=== PATIENT | male | born 1935 | race Caucasian/White ===

== ENCOUNTER 2017-09-28 12:20 | Inpatient (IN) | payer OTHER, MEDICAID ==
[2017-09-28] MEDS ORDERED: DILTIAZEM 25 MG INJ (12:44)
[2017-09-28] MEDS: SOD CHLORIDE 0.9% IV (12:52)
[2017-09-28] MEDS: DILTIAZEM 25 MG INJ IV ×3 (12:53→15:51)
[2017-09-28 13:32] LABS: ABNORMAL IP MESSAGE 1; HEMATOCRIT 47.1 % (42.0-52.0); HEMOGLOBIN 15.7 g/dl (14.0-18.0); MEAN CORPUSCULAR HEMOGLOBIN 26.8 pg (29.0-33.0); MEAN CORPUSCULAR HGB CONC 33.3 g/dl (32.0-37.0); MEAN CORPUSCULAR VOLUME 80.4 fl (82.0-101.0); MEAN PLATELET VOLUME 12.1 fl (7.4-10.4); NUCLEATED RED BLOOD CELLS% 0.4 /100WBC (0.0-0.0); PLATELET COUNT 190 10^3/UL (140-415); POSITIVE DIFF @See below; RED BLOOD COUNT 5.86 10^6/ul (4.70-6.10); RED CELL DISTRIBUTION WIDTH 16.6 % (11.5-14.5)
[2017-09-28 13:32] LABS: WHITE BLOOD COUNT 16.9 10^3/ul (4.8-10.8)
[2017-09-28 13:41] LABS: ADD MAN DIFF? YES
[2017-09-28 13:52] LABS: INR 1.97; PROTIME 22.9 Sec (11.9-14.9); PT RATIO 1.8
[2017-09-28 13:53] LABS: PARTIAL THROMBOPLASTIN TIME 28.9 Sec (25.0-35.0)
[2017-09-28 13:57] LABS: ALANINE AMINOTRANSFERASE 84 IU/L (13-69); ALBUMIN 4.1 g/dl (3.3-4.9); ALBUMIN/GLOBULIN RATIO 1.05; ALKALINE PHOSPHATASE 149 IU/L (42-121); ANION GAP 27 (8-16); ASPARTATE AMINO TRANSFERASE 146 IU/L (15-46); BILIRUBIN,INDIRECT 0.9 mg/dl (0-1.1); BILIRUBIN,TOTAL 1.4 mg/dl (0.2-1.3); BLOOD UREA NITROGEN 82 mg/dl (7-20); CALCIUM 9.4 mg/dl (8.4-10.2); CARBON DIOXIDE 16 mmol/L (21-31); CHLORIDE 94 mmol/L (97-110); CREATININE 1.53 mg/dl (0.61-1.24); SODIUM 131 mmol/L (135-144)
[2017-09-28 14:00] LABS: LACTIC ACID 8.3 mmol/L (0.5-2.0)
[2017-09-28] MEDS: PIPER-TAZO 3.375 GM IV (PMX) 100 ML IVPB ×2 (14:09→21:49)
[2017-09-28 14:21] LABS: GLUCOSE 573 mg/dl (70-220)
[2017-09-28 14:22] LABS: POTASSIUM 6.1 mmol/L (3.5-5.1)
[2017-09-28] MEDS: SOD CHLORIDE 0.9% 100 ML (14:35)
[2017-09-28 14:42] LABS: TROPONIN-I 0.178 ng/ml (0.00-0.12)
[2017-09-28 14:48] LABS: AADO2 Arterial 116.1 mmHg (7.0-24.0); Allen Test ACCEPTAB; Arterial Base Excess -6.4 mmol/L (-3.0-3); Arterial Blood Gas Oxygen Sat 89.5 mmHG (95.0-100.0); Arterial COHb 0.6 % (0.0-3.0); Arterial Fraction of Oxyhgb 88.7 % (93.0-99.0); Arterial HCO3 17.8 mmol/L (22.0-26.0); Arterial MetHb 0.3 % (0.0-1.5); Arterial Total Hemglobin 15.1 g/dl (12.0-18.0); MODE NASAL CANNULA; Site Right Radial
[2017-09-28] MEDS: VANCOMYCIN 1 GM (PMX) 250 ML IVPB (14:52)
[2017-09-28 15:16] LABS: URINE BLOOD (Dip) POC 3+ (NEGATIVE); URINE KETONES (Dip) POC Negative (NEGATIVE); URINE LEUKOCYTE EST (Dip) POC Negative (NEGATIVE); URINE NITRITE (Dip) POC Negative (NEGATIVE); URINE TOTAL PROTEIN POC 2+ (NEGATIVE)
[2017-09-28 15:16] LABS: URINE PH (Dip) POC 5.5 (5.0-8.5)
[2017-09-28 15:39] LABS: ADD UMIC YES; UR ASCORBIC ACID NEGATIVE (NEGATIVE); UR BILIRUBIN (Dip) NEGATIVE (NEGATIVE); UR BLOOD (Dip) 3+ mg/dL (NEGATIVE); UR CLARITY SLIGHTLY CLOUDY (CLEAR); UR COLOR YELLOW (YELLOW); UR GLUCOSE (Dip) 3+ mg/dL (NEGATIVE); UR KETONES (Dip) NEGATIVE (NEGATIVE); UR LEUKOCYTE ESTERASE (Dip) NEGATIVE Leu/ul (NEGATIVE); UR NITRITE (Dip) NEGATIVE (NEGATIVE); UR RBC 0 /HPF (0-5); UR SPECIFIC GRAVITY (Dip) 1.016 (1.003-1.030); UR TOTAL PROTEIN (Dip) 1+ mg/dl (NEGATIVE); UR UROBILINOGEN (Dip) NEGATIVE (NEGATIVE); UR WBC 3 /HPF (0-5)
[2017-09-28] MEDS: ASPIRIN 81 MG TAB PO (15:44)
[2017-09-28] MEDS: LIDOCAINE 1% (MPF) 5 ML VIAL SC (15:45)
[2017-09-28] MEDS: ACCU-CHEK XX ×9 (15:51→23:59)
[2017-09-28 16:06] LABS: LACTIC ACID 5.3 mmol/L (0.5-2.0)
[2017-09-28] MEDS ORDERED: NA POLYST SULFON 15 GM/60 ML BTL PO (16:30)
[2017-09-28] MEDS: INSULIN HUMAN REGULAR 100 UNIT in SOD CHLORIDE 0.9% 99 ML IV ×2 (16:42→17:26)
[2017-09-28] MEDS ORDERED: Treatment of Hypoglycemia: XX (17:00)
[2017-09-28] MEDS ORDERED: DEXTROSE 50% 50 ML SYRINGE IV ×2 (17:00)
[2017-09-28] MEDS ORDERED: ONDANSETRON 4 MG INJ IV (17:00)
[2017-09-28] MEDS ORDERED: VANCOMYCIN IV PER PHARMACY XX (17:00)
[2017-09-28] MEDS ORDERED: NACL 0.9% 3 ML SYG IV (17:00)
[2017-09-28] MEDS: Discontinue all previous diabetes medication and insulin orders. XX (17:25)
[2017-09-28] MEDS: SOD CHLORIDE 0.9% 1,000 ML IV (17:34)
[2017-09-28 17:49] LABS: B-TYPE NATRIURETIC PEPTIDE 31000 PG/ML (0-450)
[2017-09-28] MEDS ORDERED: DILTIAZEM-D5W 125MG/125ML DRIP 125 ML IV (18:00)
[2017-09-28 18:05] LABS: FREE T4 (FREE THYROXINE) 1.54 ng/dl (0.85-1.93)
[2017-09-28] MEDS: DILTIAZEM-D5W 125MG/125ML DRIP 125 ML IV (18:41)
[2017-09-28] MEDS ORDERED: LEVALBUTEROL (NEB) 0.31 MG/3 ML AMP HHN (19:00)
[2017-09-28 19:14] LABS: CREATINE KINASE 1246 IU/L (23-200)
[2017-09-28 19:15] LABS: ANION GAP 23 (8-16); BLOOD UREA NITROGEN 73 mg/dl (7-20); CALCIUM 9.1 mg/dl (8.4-10.2); CARBON DIOXIDE 21 mmol/L (21-31); CHLORIDE 99 mmol/L (97-110); CREATININE 1.35 mg/dl (0.61-1.24); GLUCOSE 281 mg/dl (70-220); MAGNESIUM 2.1 mg/dl (1.7-2.5); SODIUM 138 mmol/L (135-144)
[2017-09-28 19:19] LABS: LACTIC ACID 6.2 mmol/L (0.5-2.0)
[2017-09-28] MEDS: FUROSEMIDE 40 MG INJ IV (19:21)
[2017-09-28 19:27] LABS: CK INDEX 3.3
[2017-09-28 19:33] LABS: TROPONIN-I 0.187 ng/ml (0.00-0.12)
[2017-09-28] MEDS: LEVALBUTEROL (NEB) 1.25 MG/0.5 ML AMP HHN (20:09)
[2017-09-28] MEDS: FAMOTIDINE 20 MG INJ IV (21:49)
[2017-09-28 22:43] LABS: LACTIC ACID 6.5 mmol/L (0.5-2.0)
[2017-09-29] MEDS: LEVALBUTEROL (NEB) 1.25 MG/0.5 ML AMP HHN ×6 (00:02→21:21)
[2017-09-29] MEDS: DILTIAZEM-D5W 125MG/125ML DRIP 125 ML IV ×2 (00:21→23:10)
[2017-09-29 00:22] LABS: ANISOCYTOSIS 1+ (0-0); BAND NEUTROPHILS #M 2.5 10^3/ul (0.0-0.6); BAND NEUTROPHILS % (M) 15 % (0-4); MONOCYTE #M 0.6 10^3/ul (0.3-0.9); MONOCYTES % (M) 4 % (0-11); PLATELET ESTIMATE NORMAL; POIKILOCYTOSIS 2+ (0-0); PROMYELOCYTES #M 0.1 10^3/ul (0-0); PROMYELOCYTES % (M) 1 % (0-0); SEG NEUT #M 14.1 10^3/ul (1.6-7.5); SEGMENTED NEUTROPHILS (M) % 81 % (39-77)
[2017-09-29] MEDS: ACCU-CHEK XX ×13 (01:02→13:00)
[2017-09-29 01:28] LABS: SODIUM,URINE RANDOM 74 mmol/L (30-90)
[2017-09-29 01:29] LABS: CREATININE,URINE RANDOM 16.02 mg/dl (20-370)
[2017-09-29] MEDS: PIPER-TAZO 3.375 GM IV (PMX) 100 ML IVPB ×3 (06:09→22:00)
[2017-09-29 06:19] LABS: WHITE BLOOD COUNT 18.2 10^3/ul (4.8-10.8)
[2017-09-29 06:19] LABS: ABNORMAL IP MESSAGE 1; HEMATOCRIT 39.1 % (42.0-52.0); HEMOGLOBIN 13.4 g/dl (14.0-18.0); MEAN CORPUSCULAR HEMOGLOBIN 26.9 pg (29.0-33.0); MEAN CORPUSCULAR HGB CONC 34.3 g/dl (32.0-37.0); MEAN CORPUSCULAR VOLUME 78.5 fl (82.0-101.0); MEAN PLATELET VOLUME 10.8 fl (7.4-10.4); NUCLEATED RED BLOOD CELLS% 1.8 /100WBC (0.0-0.0); PLATELET COUNT 145 10^3/UL (140-415); POSITIVE DIFF @See below; RED BLOOD COUNT 4.98 10^6/ul (4.70-6.10); RED CELL DISTRIBUTION WIDTH 15.5 % (11.5-14.5)
[2017-09-29 06:25] LABS: ADD MAN DIFF? YES
[2017-09-29 06:51] LABS: ALANINE AMINOTRANSFERASE 76 IU/L (13-69); ALBUMIN 3.1 g/dl (3.3-4.9); ALBUMIN/GLOBULIN RATIO 0.86; ALKALINE PHOSPHATASE 137 IU/L (42-121); ANION GAP 17 (8-16); ASPARTATE AMINO TRANSFERASE 129 IU/L (15-46); BILIRUBIN,INDIRECT 0.9 mg/dl (0-1.1); BILIRUBIN,TOTAL 1.3 mg/dl (0.2-1.3); BLOOD UREA NITROGEN 72 mg/dl (7-20); CARBON DIOXIDE 25 mmol/L (21-31); CHLORIDE 102 mmol/L (97-110); CREATININE 1.24 mg/dl (0.61-1.24); GLUCOSE 120 mg/dl (70-220); POTASSIUM 4.4 mmol/L (3.5-5.1); SODIUM 140 mmol/L (135-144); TOTAL PROTEIN 6.7 g/dl (6.1-8.1)
[2017-09-29 06:51] LABS: LACTIC ACID 2.3 mmol/L (0.5-2.0)
[2017-09-29 07:31] LABS: CREATINE KINASE 1090 IU/L (23-200)
[2017-09-29 07:32] LABS: URIC ACID 8.5 mg/dl (3.1-7.9)
[2017-09-29 07:40] LABS: CHOL/HDL RATIO 4.6 RATIO; CHOLESTEROL 75 mg/dl (100-200); HDL CHOLESTEROL 16 mg/dl (31-75); LDL CHOLESTEROL,CALCULATED 43 mg/dl; MAGNESIUM 1.7 mg/dl (1.7-2.5); TRIGLYCERIDES 79 mg/dl (0-149)
[2017-09-29 07:40] LABS: PHOSPHORUS 2.8 mg/dl (2.5-4.9)
[2017-09-29 07:44] LABS: CK INDEX 3.1; TROPONIN-I 0.233 ng/ml (0.00-0.12)
[2017-09-29] MEDS: DIGOXIN 500 MCG INJ IV (07:49)
[2017-09-29 09:10] LABS: ANISOCYTOSIS 1+ (0-0); BAND NEUTROPHILS #M 8.3 10^3/ul (0.0-0.6); BAND NEUTROPHILS % (M) 46 % (0-4); ERYTHROBLAST% (NRBC) (M) 1 % (0-0); GIANT THROMBO% (M) 1 % (0-0); MONOCYTE #M 1.6 10^3/ul (0.3-0.9); MONOCYTES % (M) 9 % (0-11); PLATELET ESTIMATE NORMAL; POIKILOCYTOSIS 1+ (0-0); REACTIVE LYMPHOCYTES #M 0.3 10^3/ul (0.0-0.0); REACTIVE LYMPHOCYTES% (M) 2 % (0-0); SEG NEUT #M 9.3 10^3/ul (1.6-7.5); SEGMENTED NEUTROPHILS (M) % 43 % (39-77); SMUDGE%M 4 % (0-0)
[2017-09-29] MEDS: ASPIRIN 81 MG TAB PO (10:00)
[2017-09-29] MEDS ORDERED: GLUCAGON 1 MG INJ IM (11:00)
[2017-09-29] MEDS ORDERED: GLUCOSE GEL 15 GRAM TUBE PO ×2 (11:00)
[2017-09-29] MEDS: INSULIN GLARGINE [LANtus] 3 ML PEN SC ×2 (11:19→12:17)
[2017-09-29] MEDS: INSULIN ASPART [NOVOLOG] 3 ML PEN SC ×5 (11:30→21:00)
[2017-09-29] MEDS ORDERED: PHENYLephrine 20MG IN 250 ML 250 ML IV (12:00)
[2017-09-29] MEDS: VANCOMYCIN 1 GM in 250 ML IVPB (12:15)
[2017-09-29] MEDS: CIPROFLOXACIN 0.3% 2.5 ML OPH BOTH EYES ×2 (13:48→21:00)
[2017-09-29 14:08] LABS: CREATINE KINASE 1208 IU/L (23-200)
[2017-09-29 14:21] LABS: CK INDEX 3.1
[2017-09-29 14:23] LABS: TROPONIN-I 0.193 ng/ml (0.00-0.12)
[2017-09-29] MEDS ORDERED: PHENYLephrine 40 MG in DEXTROSE 5% 496 ML IV (19:00)
[2017-09-29] MEDS ORDERED: INSULIN GLARGINE [LANtus] 3 ML PEN SC (20:00)
[2017-09-29] MEDS: FAMOTIDINE 20 MG INJ IV (20:51)
[2017-09-30] MEDS: LEVALBUTEROL (NEB) 1.25 MG/0.5 ML AMP HHN ×6 (00:54→20:16)
[2017-09-30] MEDS: PIPER-TAZO 3.375 GM IV (PMX) 100 ML IVPB (05:21)
[2017-09-30 05:54] LABS: ABNORMAL IP MESSAGE 1; HEMATOCRIT 38.9 % (42.0-52.0); HEMOGLOBIN 13.7 g/dl (14.0-18.0); MEAN CORPUSCULAR HEMOGLOBIN 27.3 pg (29.0-33.0); MEAN CORPUSCULAR HGB CONC 35.2 g/dl (32.0-37.0); MEAN CORPUSCULAR VOLUME 77.6 fl (82.0-101.0); MEAN PLATELET VOLUME 11.4 fl (7.4-10.4); NUCLEATED RED BLOOD CELLS% 0.2 /100WBC (0.0-0.0); PLATELET COUNT 132 10^3/UL (140-415); POSITIVE DIFF @See below; RED BLOOD COUNT 5.01 10^6/ul (4.70-6.10); RED CELL DISTRIBUTION WIDTH 16.7 % (11.5-14.5)
[2017-09-30 05:54] LABS: WHITE BLOOD COUNT 18.4 10^3/ul (4.8-10.8)
[2017-09-30 06:06] LABS: ADD MAN DIFF? YES
[2017-09-30 06:21] LABS: ALANINE AMINOTRANSFERASE 78 IU/L (13-69); ALBUMIN 2.8 g/dl (3.3-4.9); ALBUMIN/GLOBULIN RATIO 0.82; ALKALINE PHOSPHATASE 120 IU/L (42-121); ANION GAP 13 (8-16); ASPARTATE AMINO TRANSFERASE 152 IU/L (15-46); BILIRUBIN,TOTAL 1.2 mg/dl (0.2-1.3); BLOOD UREA NITROGEN 50 mg/dl (7-20); CALCIUM 8.5 mg/dl (8.4-10.2); CARBON DIOXIDE 29 mmol/L (21-31); CHLORIDE 101 mmol/L (97-110); CREATINE KINASE 960 IU/L (23-200); CREATININE 1.06 mg/dl (0.61-1.24); GLUCOSE 78 mg/dl (70-220); MAGNESIUM 1.5 mg/dl (1.7-2.5); SODIUM 140 mmol/L (135-144); TOTAL PROTEIN 6.2 g/dl (6.1-8.1)
[2017-09-30] MEDS: INSULIN ASPART [NOVOLOG] 3 ML PEN SC ×8 (07:35→20:25)
[2017-09-30 07:36] LABS: DIGOXIN < 0.4 ng/ml (1.0-2.0)
[2017-09-30 07:41] LABS: ANISOCYTOSIS 1+ (0-0); BAND NEUTROPHILS #M 3.4 10^3/ul (0.0-0.6); BAND NEUTROPHILS % (M) 19 % (0-4); BURR CELLS 2+ (0-0); LYMPHOCYTES #M 0.3 10^3/ul (0.8-2.9); LYMPHOCYTES % (M) 2 % (15-51); MONOCYTE #M 0.1 10^3/ul (0.3-0.9); MONOCYTES % (M) 1 % (0-11); PLATELET ESTIMATE DECREASED; POIKILOCYTOSIS 2+ (0-0); REACTIVE LYMPHOCYTES #M 0.1 10^3/ul (0.0-0.0); REACTIVE LYMPHOCYTES% (M) 1 % (0-0); SEG NEUT #M 14.8 10^3/ul (1.6-7.5); SEGMENTED NEUTROPHILS (M) % 77 % (39-77); SMUDGE%M 5 % (0-0); TARGET CELLS 1+ (0-0)
[2017-09-30] MEDS: POTASSIUM CHLORIDE (SR) 20 MEQ TAB PO ×2 (08:02→11:14)
[2017-09-30] MEDS: ASPIRIN 81 MG TAB PO (08:02)
[2017-09-30] MEDS: CIPROFLOXACIN 0.3% 2.5 ML OPH BOTH EYES ×2 (08:03→20:25)
[2017-09-30] MEDS: GLUCOSE GEL 15 GRAM TUBE BUCCAL (08:17)
[2017-09-30] MEDS: MAGNESIUM SULFATE 4 GM/100 ML 100 ML IVPB (09:13)
[2017-09-30 10:29] LABS: HAAIG REFLEX REFLEX FILED
[2017-09-30 10:58] LABS: CREATINE KINASE 1275 IU/L (23-200)
[2017-09-30] MEDS: DIGOXIN 500 MCG INJ IV (10:59)
[2017-09-30 11:09] LABS: CK INDEX 3.6
[2017-09-30 11:11] LABS: TROPONIN-I 0.178 ng/ml (0.00-0.12)
[2017-09-30] MEDS: VANCOMYCIN 1 GM in 250 ML IVPB (11:13)
[2017-09-30 11:30] LABS: HEPATITIS B SURFACE ANTIGEN NEGATIVE (NEGATIVE)
[2017-09-30 11:47] LABS: HEPATITIS B CORE ANTIBODY NEGATIVE (NEGATIVE); HEPATITIS C VIRAL ANTIBODY NEGATIVE (NEGATIVE)
[2017-09-30] MEDS: POTASSIUM CHLORIDE 20 MEQ/SW 100 ML IVPB ×2 (13:00→14:05)
[2017-09-30] MEDS ORDERED: POTASSIUM CHLORIDE 0 ML (13:17)
[2017-09-30] MEDS: POTASSIUM CHLORIDE 100 ML IVPB ×2 (13:20→15:12)
[2017-09-30] MEDS: MEROPENEM 500MG/50 ML (PMX) 50 ML IVPB ×2 (13:21→22:01)
[2017-09-30] MEDS: OXYMETAZOLINE 0.05% 15 ML NAS SPRAY NASAL ×2 (14:00→20:25)
[2017-09-30] MEDS ORDERED: INSULIN GLARGINE [LANtus] 3 ML PEN SC (20:00)
[2017-09-30] MEDS: FAMOTIDINE 20 MG INJ IV (20:24)
[2017-09-30] MEDS: INSULIN GLARGINE [LANtus] 3 ML PEN SC (20:30)
[2017-10-01] MEDS: LEVALBUTEROL (NEB) 1.25 MG/0.5 ML AMP HHN ×6 (00:09→20:36)
[2017-10-01] MEDS: MEROPENEM 500MG/50 ML (PMX) 50 ML IVPB ×3 (05:08→21:27)
[2017-10-01 05:38] LABS: ADD MAN DIFF? NO
[2017-10-01 05:43] LABS: ABNORMAL IP MESSAGE 1; BASOPHIL # 0.1 10^3/ul (0.0-0.1); BASOPHILS % 0.3 % (0.0-2.0); HEMATOCRIT 40.2 % (42.0-52.0); HEMOGLOBIN 13.9 g/dl (14.0-18.0); LYMPHOCYTES # 0.5 10^3/ul (0.8-2.9); LYMPHOCYTES % 2.2 % (15.0-51.0); MEAN CORPUSCULAR HEMOGLOBIN 27.2 pg (29.0-33.0); MEAN CORPUSCULAR HGB CONC 34.6 g/dl (32.0-37.0); MEAN CORPUSCULAR VOLUME 78.7 fl (82.0-101.0); MEAN PLATELET VOLUME 11.5 fl (7.4-10.4); MONOCYTE # 0.8 10^3/ul (0.3-0.9); MONOCYTES % 3.9 % (0.0-11.0); NEUTROPHIL # 18.5 10^3/ul (1.6-7.5); NEUTROPHILS % 92.7 % (39.0-77.0); NUCLEATED RED BLOOD CELLS% 0.1 /100WBC (0.0-0.0); PLATELET COUNT 142 10^3/UL (140-415); POSITIVE DIFF @See below; RED BLOOD COUNT 5.11 10^6/ul (4.70-6.10); RED CELL DISTRIBUTION WIDTH 16.4 % (11.5-14.5)
[2017-10-01 06:01] LABS: ALANINE AMINOTRANSFERASE 98 IU/L (13-69); ALBUMIN 3.2 g/dl (3.3-4.9); ALBUMIN/GLOBULIN RATIO 0.86; ALKALINE PHOSPHATASE 177 IU/L (42-121); ANION GAP 14 (8-16); ASPARTATE AMINO TRANSFERASE 266 IU/L (15-46); BILIRUBIN,TOTAL 1.1 mg/dl (0.2-1.3); BLOOD UREA NITROGEN 39 mg/dl (7-20); CALCIUM 8.5 mg/dl (8.4-10.2); CARBON DIOXIDE 29 mmol/L (21-31); CHLORIDE 104 mmol/L (97-110); CREATININE 0.93 mg/dl (0.61-1.24); GLUCOSE 149 mg/dl (70-220); MAGNESIUM 2.2 mg/dl (1.7-2.5); POTASSIUM 3.7 mmol/L (3.5-5.1); SODIUM 143 mmol/L (135-144); TOTAL PROTEIN 6.9 g/dl (6.1-8.1)
[2017-10-01 06:05] LABS: DIGOXIN 0.6 ng/ml (1.0-2.0)
[2017-10-01 06:09] LABS: B-TYPE NATRIURETIC PEPTIDE 15700 PG/ML (0-450)
[2017-10-01 06:15] LABS: TROPONIN-I 0.181 ng/ml (0.00-0.12)
[2017-10-01 06:23] LABS: CK INDEX 1.2; CREATINE KINASE 6998 IU/L (23-200)
[2017-10-01] MEDS: INSULIN ASPART [NOVOLOG] 3 ML PEN SC ×7 (07:35→20:53)
[2017-10-01] MEDS: ASPIRIN 81 MG TAB PO (08:17)
[2017-10-01] MEDS: CIPROFLOXACIN 0.3% 2.5 ML OPH BOTH EYES ×2 (08:36→20:52)
[2017-10-01] MEDS ORDERED: BISACODYL (EC) 5 MG TAB PO (09:30)
[2017-10-01] MEDS: OXYMETAZOLINE 0.05% 15 ML NAS SPRAY NASAL ×2 (09:40→20:51)
[2017-10-01] MEDS: POLYETHYLENE GLYCOL 17 GM PACKET PO ×2 (11:31→20:51)
[2017-10-01 11:58] LABS: VANCOMYCIN,TROUGH 8.2 ug/ml (10.0-20.0)
[2017-10-01] MEDS: DIGOXIN 0.125 MG TAB PO (12:48)
[2017-10-01] MEDS: VANCOMYCIN 1.5 GM in SOD CHLORIDE 0.9% 250 ML IVPB (15:23)
[2017-10-01] MEDS: FAMOTIDINE 20 MG INJ IV (20:51)
[2017-10-01] MEDS: ACETAMINOPHEN 325 MG TAB PO (20:51)
[2017-10-01] MEDS: INSULIN GLARGINE [LANtus] 3 ML PEN SC (21:00)
[2017-10-02] MEDS: LEVALBUTEROL (NEB) 1.25 MG/0.5 ML AMP HHN ×6 (00:52→21:29)
[2017-10-02] MEDS: MEROPENEM 500MG/50 ML (PMX) 50 ML IVPB (05:39)
[2017-10-02] MEDS: INSULIN ASPART [NOVOLOG] 3 ML PEN SC ×7 (08:00→20:57)
[2017-10-02] MEDS: DEXTROSE 50% 50 ML SYRINGE IV (08:00)
[2017-10-02] MEDS: ASPIRIN 81 MG TAB PO (08:49)
[2017-10-02] MEDS: POLYETHYLENE GLYCOL 17 GM PACKET PO ×2 (08:49→20:53)
[2017-10-02 10:45] LABS: ADD MAN DIFF? NO
[2017-10-02 11:05] LABS: WHITE BLOOD COUNT 19.8 10^3/ul (4.8-10.8)
[2017-10-02 11:05] LABS: BASOPHIL # 0.1 10^3/ul (0.0-0.1); BASOPHILS % 0.5 % (0.0-2.0); EOSINOPHILS % 0.2 % (0.0-7.0); HEMATOCRIT 46.8 % (42.0-52.0); HEMOGLOBIN 15.8 g/dl (14.0-18.0); LYMPHOCYTES # 0.7 10^3/ul (0.8-2.9); LYMPHOCYTES % 3.4 % (15.0-51.0); MEAN CORPUSCULAR HEMOGLOBIN 26.7 pg (29.0-33.0); MEAN CORPUSCULAR HGB CONC 33.8 g/dl (32.0-37.0); MEAN CORPUSCULAR VOLUME 79.1 fl (82.0-101.0); MEAN PLATELET VOLUME 11.2 fl (7.4-10.4); MONOCYTE # 1.2 10^3/ul (0.3-0.9); NEUTROPHIL # 17.7 10^3/ul (1.6-7.5); NEUTROPHILS % 88.9 % (39.0-77.0); NUCLEATED RED BLOOD CELLS% 0.1 /100WBC (0.0-0.0); PLATELET COUNT 136 10^3/UL (140-415); POSITIVE DIFF @See below; RED BLOOD COUNT 5.92 10^6/ul (4.70-6.10); RED CELL DISTRIBUTION WIDTH 17.1 % (11.5-14.5)
[2017-10-02 11:22] LABS: TROPONIN-I 0.161 ng/ml (0.00-0.12)
[2017-10-02 11:28] LABS: DIGOXIN 0.6 ng/ml (1.0-2.0)
[2017-10-02 11:35] LABS: B-TYPE NATRIURETIC PEPTIDE 20800 PG/ML (0-450)
[2017-10-02 11:49] LABS: ALANINE AMINOTRANSFERASE 98 IU/L (13-69); ALBUMIN 2.6 g/dl (3.3-4.9); ALBUMIN/GLOBULIN RATIO 0.68; ALKALINE PHOSPHATASE 221 IU/L (42-121); ANION GAP 15 (8-16); ASPARTATE AMINO TRANSFERASE 288 IU/L (15-46); BILIRUBIN,TOTAL 1.3 mg/dl (0.2-1.3); BLOOD UREA NITROGEN 32 mg/dl (7-20); CALCIUM 8.1 mg/dl (8.4-10.2); CARBON DIOXIDE 25 mmol/L (21-31); CHLORIDE 107 mmol/L (97-110); CREATININE 0.78 mg/dl (0.61-1.24); GLUCOSE 90 mg/dl (70-220); MAGNESIUM 1.9 mg/dl (1.7-2.5); POTASSIUM 3.8 mmol/L (3.5-5.1); SODIUM 143 mmol/L (135-144); TOTAL PROTEIN 6.4 g/dl (6.1-8.1)
[2017-10-02] MEDS: OXYMETAZOLINE 0.05% 15 ML NAS SPRAY NASAL ×2 (11:59→20:54)
[2017-10-02] MEDS: CIPROFLOXACIN 0.3% 2.5 ML OPH BOTH EYES ×2 (11:59→20:54)
[2017-10-02 12:33] LABS: CK INDEX 1.3; CREATINE KINASE 4821 IU/L (23-200)
[2017-10-02] MEDS: DIGOXIN 0.125 MG TAB PO (12:56)
[2017-10-02 14:24] LABS: PHOSPHORUS 3.4 mg/dl (2.5-4.9)
[2017-10-02] MEDS: CEFEPIME 1GM/50 ML (PMX) 50 ML IVPB (20:53)
[2017-10-02] MEDS: INSULIN GLARGINE [LANtus] 3 ML PEN SC (20:58)
[2017-10-02] MEDS: FAMOTIDINE 20 MG INJ IV (21:02)
[2017-10-02] MEDS: LORAZEPAM 2 MG INJ IV (21:49)
[2017-10-03] MEDS: LEVALBUTEROL (NEB) 1.25 MG/0.5 ML AMP HHN ×6 (00:29→20:10)
[2017-10-03] MEDS: INSULIN ASPART [NOVOLOG] 3 ML PEN SC ×7 (08:00→21:48)
[2017-10-03 08:56] LABS: ADD MAN DIFF? NO
[2017-10-03 08:59] LABS: BASOPHIL # 0.1 10^3/ul (0.0-0.1); BASOPHILS % 0.4 % (0.0-2.0); EOSINOPHILS % 0.1 % (0.0-7.0); HEMATOCRIT 44.5 % (42.0-52.0); HEMOGLOBIN 15.4 g/dl (14.0-18.0); LYMPHOCYTES # 0.6 10^3/ul (0.8-2.9); LYMPHOCYTES % 3.1 % (15.0-51.0); MEAN CORPUSCULAR HEMOGLOBIN 27.1 pg (29.0-33.0); MEAN CORPUSCULAR HGB CONC 34.6 g/dl (32.0-37.0); MEAN CORPUSCULAR VOLUME 78.2 fl (82.0-101.0); MEAN PLATELET VOLUME 11.1 fl (7.4-10.4); MONOCYTE # 1.2 10^3/ul (0.3-0.9); MONOCYTES % 6.1 % (0.0-11.0); NEUTROPHIL # 17.8 10^3/ul (1.6-7.5); NEUTROPHILS % 88.9 % (39.0-77.0); NUCLEATED RED BLOOD CELLS% 0.1 /100WBC (0.0-0.0); PLATELET COUNT 182 10^3/UL (140-415); RED BLOOD COUNT 5.69 10^6/ul (4.70-6.10); RED CELL DISTRIBUTION WIDTH 18.1 % (11.5-14.5)
[2017-10-03 09:17] LABS: PHOSPHORUS 4.3 mg/dl (2.5-4.9)
[2017-10-03 09:17] LABS: MAGNESIUM 1.9 mg/dl (1.7-2.5)
[2017-10-03 09:18] LABS: ALANINE AMINOTRANSFERASE 94 IU/L (13-69); ALBUMIN 2.7 g/dl (3.3-4.9); ALBUMIN/GLOBULIN RATIO 0.71; ALKALINE PHOSPHATASE 248 IU/L (42-121); ANION GAP 14 (8-16); ASPARTATE AMINO TRANSFERASE 188 IU/L (15-46); BILIRUBIN,TOTAL 1.4 mg/dl (0.2-1.3); BLOOD UREA NITROGEN 36 mg/dl (7-20); CALCIUM 8.1 mg/dl (8.4-10.2); CARBON DIOXIDE 28 mmol/L (21-31); CHLORIDE 105 mmol/L (97-110); CREATININE 0.83 mg/dl (0.61-1.24); GLUCOSE 115 mg/dl (70-220); POTASSIUM 4.1 mmol/L (3.5-5.1); SODIUM 143 mmol/L (135-144); TOTAL PROTEIN 6.5 g/dl (6.1-8.1)
[2017-10-03] MEDS: OXYMETAZOLINE 0.05% 15 ML NAS SPRAY NASAL ×2 (09:45→21:50)
[2017-10-03] MEDS: CEFEPIME 1GM/50 ML (PMX) 50 ML IVPB ×2 (09:45→21:59)
[2017-10-03] MEDS: CIPROFLOXACIN 0.3% 2.5 ML OPH BOTH EYES ×2 (09:45→21:49)
[2017-10-03] MEDS: POLYETHYLENE GLYCOL 17 GM PACKET PO ×2 (09:45→21:50)
[2017-10-03] MEDS: ASPIRIN 81 MG TAB PO (09:46)
[2017-10-03] MEDS: CIPROFLOXACIN 500 MG TAB PO ×2 (12:10→17:36)
[2017-10-03] MEDS ORDERED: VITAMIN A & D 5 GM OINT PACKET TOP (13:19)
[2017-10-03] MEDS: DIGOXIN 0.125 MG TAB PO (14:07)
[2017-10-03] MEDS: INSULIN GLARGINE [LANtus] 3 ML PEN SC (21:45)
[2017-10-03] MEDS: LORAZEPAM 2 MG INJ IV (21:49)
[2017-10-03] MEDS: FAMOTIDINE 20 MG INJ IV (21:49)
[2017-10-04] MEDS: LEVALBUTEROL (NEB) 1.25 MG/0.5 ML AMP HHN ×6 (01:18→20:25)
[2017-10-04] MEDS: CIPROFLOXACIN 500 MG TAB PO ×2 (06:13→17:04)
[2017-10-04] MEDS: METOPROLOL 5 MG INJ IV (07:13)
[2017-10-04] MEDS: POLYETHYLENE GLYCOL 17 GM PACKET PO ×2 (09:00→20:55)
[2017-10-04] MEDS: CIPROFLOXACIN 0.3% 2.5 ML OPH BOTH EYES ×2 (09:10→20:56)
[2017-10-04] MEDS: OXYMETAZOLINE 0.05% 15 ML NAS SPRAY NASAL ×2 (09:10→20:56)
[2017-10-04] MEDS: CEFEPIME 1GM/50 ML (PMX) 50 ML IVPB ×2 (09:10→20:56)
[2017-10-04] MEDS: ASPIRIN 81 MG TAB PO (09:26)
[2017-10-04] MEDS: INSULIN ASPART [NOVOLOG] 3 ML PEN SC ×7 (09:50→20:54)
[2017-10-04 12:30] LABS: ADD MAN DIFF? NO
[2017-10-04 12:42] LABS: WHITE BLOOD COUNT 15.2 10^3/ul (4.8-10.8)
[2017-10-04 12:42] LABS: ABNORMAL IP MESSAGE 1; BASOPHILS % 0.2 % (0.0-2.0); EOSINOPHILS % 0.2 % (0.0-7.0); HEMATOCRIT 40.5 % (42.0-52.0); HEMOGLOBIN 13.7 g/dl (14.0-18.0); LYMPHOCYTES # 0.5 10^3/ul (0.8-2.9); LYMPHOCYTES % 3.3 % (15.0-51.0); MEAN CORPUSCULAR HEMOGLOBIN 26.4 pg (29.0-33.0); MEAN CORPUSCULAR HGB CONC 33.8 g/dl (32.0-37.0); MEAN PLATELET VOLUME 10.9 fl (7.4-10.4); MONOCYTE # 0.9 10^3/ul (0.3-0.9); MONOCYTES % 6.2 % (0.0-11.0); NEUTROPHIL # 13.4 10^3/ul (1.6-7.5); NEUTROPHILS % 88.3 % (39.0-77.0); PLATELET COUNT 202 10^3/UL (140-415); POSITIVE DIFF @See below; RED BLOOD COUNT 5.19 10^6/ul (4.70-6.10); RED CELL DISTRIBUTION WIDTH 16.1 % (11.5-14.5)
[2017-10-04 12:51] LABS: AMMONIA 22 umol/l (9-30)
[2017-10-04 12:52] LABS: MAGNESIUM 1.8 mg/dl (1.7-2.5)
[2017-10-04 12:53] LABS: ALANINE AMINOTRANSFERASE 79 IU/L (13-69); ALBUMIN 2.4 g/dl (3.3-4.9); ALBUMIN/GLOBULIN RATIO 0.66; ALKALINE PHOSPHATASE 189 IU/L (42-121); ANION GAP 11 (8-16); ASPARTATE AMINO TRANSFERASE 149 IU/L (15-46); BILIRUBIN,INDIRECT 1.2 mg/dl (0-1.1); BILIRUBIN,TOTAL 1.2 mg/dl (0.2-1.3); BLOOD UREA NITROGEN 36 mg/dl (7-20); CALCIUM 7.8 mg/dl (8.4-10.2); CARBON DIOXIDE 29 mmol/L (21-31); CHLORIDE 107 mmol/L (97-110); CREATININE 0.85 mg/dl (0.61-1.24); GLUCOSE 153 mg/dl (70-220); POTASSIUM 3.9 mmol/L (3.5-5.1); SODIUM 143 mmol/L (135-144)
[2017-10-04 12:56] LABS: INR 1.52; PROTIME 18.6 Sec (11.9-14.9); PT RATIO 1.5
[2017-10-04 12:57] LABS: PARTIAL THROMBOPLASTIN TIME 32.9 Sec (25.0-35.0)
[2017-10-04 13:03] LABS: CREATINE KINASE 2585 IU/L (23-200)
[2017-10-04] MEDS: HEPARIN 1000 UNITS/ML 10 ML INJ IV ×2 (13:18→13:25)
[2017-10-04] MEDS: HEPARIN 25000 UNITS/250 ML 250 ML IV ×2 (13:25→22:04)
[2017-10-04] MEDS: DIGOXIN 0.125 MG TAB PO (13:32)
[2017-10-04 20:07] LABS: PARTIAL THROMBOPLASTIN TIME 168.3 Sec (25.0-35.0)
[2017-10-04] MEDS: INSULIN GLARGINE [LANtus] 3 ML PEN SC (20:53)
[2017-10-04] MEDS: ACETAMINOPHEN 325 MG TAB PO (20:55)
[2017-10-04] MEDS: FAMOTIDINE 20 MG INJ IV (20:56)
[2017-10-05] MEDS: LEVALBUTEROL (NEB) 1.25 MG/0.5 ML AMP HHN ×7 (00:38→20:38)
[2017-10-05 03:22] LABS: PARTIAL THROMBOPLASTIN TIME 86.9 Sec (25.0-35.0)
[2017-10-05] MEDS: CIPROFLOXACIN 500 MG TAB PO ×2 (06:03→17:52)
[2017-10-05] MEDS: INSULIN ASPART [NOVOLOG] 3 ML PEN SC ×7 (08:00→21:47)
[2017-10-05] MEDS: ASPIRIN 81 MG TAB PO (09:01)
[2017-10-05] MEDS: CIPROFLOXACIN 0.3% 2.5 ML OPH BOTH EYES ×2 (09:01→21:42)
[2017-10-05] MEDS: OXYMETAZOLINE 0.05% 15 ML NAS SPRAY NASAL ×2 (09:01→21:42)
[2017-10-05] MEDS: POLYETHYLENE GLYCOL 17 GM PACKET PO ×2 (09:02→21:52)
[2017-10-05] MEDS: CEFEPIME 1GM/50 ML (PMX) 50 ML IVPB ×2 (09:04→21:41)
[2017-10-05] MEDS: DILTIAZEM 25 MG INJ IV (10:11)
[2017-10-05 10:29] LABS: ADD MAN DIFF? NO
[2017-10-05 10:39] LABS: WHITE BLOOD COUNT 19.5 10^3/ul (4.8-10.8)
[2017-10-05 10:39] LABS: BASOPHIL # 0.1 10^3/ul (0.0-0.1); BASOPHILS % 0.4 % (0.0-2.0); EOSINOPHILS # 0.1 10^3/ul (0.0-0.5); EOSINOPHILS % 0.5 % (0.0-7.0); HEMOGLOBIN 14.7 g/dl (14.0-18.0); LYMPHOCYTES # 0.7 10^3/ul (0.8-2.9); LYMPHOCYTES % 3.4 % (15.0-51.0); MEAN CORPUSCULAR HEMOGLOBIN 26.5 pg (29.0-33.0); MEAN CORPUSCULAR HGB CONC 34.2 g/dl (32.0-37.0); MEAN CORPUSCULAR VOLUME 77.5 fl (82.0-101.0); MONOCYTES % 5.1 % (0.0-11.0); NEUTROPHIL # 17.4 10^3/ul (1.6-7.5); NEUTROPHILS % 89.6 % (39.0-77.0); PLATELET COUNT 270 10^3/UL (140-415); RED BLOOD COUNT 5.55 10^6/ul (4.70-6.10); RED CELL DISTRIBUTION WIDTH 17.7 % (11.5-14.5)
[2017-10-05 10:54] LABS: ALANINE AMINOTRANSFERASE 93 IU/L (13-69); ALBUMIN 2.9 g/dl (3.3-4.9); ALBUMIN/GLOBULIN RATIO 0.69; ALKALINE PHOSPHATASE 244 IU/L (42-121); ANION GAP 15 (8-16); ASPARTATE AMINO TRANSFERASE 204 IU/L (15-46); BILIRUBIN,INDIRECT 1.2 mg/dl (0-1.1); BILIRUBIN,TOTAL 1.2 mg/dl (0.2-1.3); BLOOD UREA NITROGEN 26 mg/dl (7-20); CARBON DIOXIDE 28 mmol/L (21-31); CHLORIDE 104 mmol/L (97-110); GLUCOSE 170 mg/dl (70-220); POTASSIUM 3.7 mmol/L (3.5-5.1); SODIUM 143 mmol/L (135-144); TOTAL PROTEIN 7.1 g/dl (6.1-8.1)
[2017-10-05 11:00] LABS: MAGNESIUM 1.7 mg/dl (1.7-2.5)
[2017-10-05 11:00] LABS: PHOSPHORUS 2.9 mg/dl (2.5-4.9)
[2017-10-05 11:50] LABS: PARTIAL THROMBOPLASTIN TIME 75.6 Sec (25.0-35.0)
[2017-10-05] MEDS: HEPARIN 25000 UNITS/250 ML 250 ML IV ×2 (12:06→12:30)
[2017-10-05] MEDS: DIGOXIN 0.125 MG TAB PO (12:28)
[2017-10-05] MEDS: FAMOTIDINE 20 MG INJ IV (21:42)
[2017-10-05] MEDS: INSULIN GLARGINE [LANtus] 3 ML PEN SC (21:49)
[2017-10-06] MEDS: LEVALBUTEROL (NEB) 1.25 MG/0.5 ML AMP HHN ×6 (00:55→20:15)
[2017-10-06] MEDS: CIPROFLOXACIN 500 MG TAB PO ×2 (05:43→17:32)
[2017-10-06 07:52] LABS: ADD MAN DIFF? NO
[2017-10-06 08:02] LABS: ABNORMAL IP MESSAGE 1; BASOPHILS % 0.2 % (0.0-2.0); EOSINOPHILS % 0.2 % (0.0-7.0); HEMATOCRIT 36.4 % (42.0-52.0); HEMOGLOBIN 12.5 g/dl (14.0-18.0); LYMPHOCYTES # 0.6 10^3/ul (0.8-2.9); LYMPHOCYTES % 3.6 % (15.0-51.0); MEAN CORPUSCULAR HEMOGLOBIN 26.7 pg (29.0-33.0); MEAN CORPUSCULAR HGB CONC 34.3 g/dl (32.0-37.0); MEAN CORPUSCULAR VOLUME 77.6 fl (82.0-101.0); MEAN PLATELET VOLUME 11.2 fl (7.4-10.4); MONOCYTE # 0.9 10^3/ul (0.3-0.9); MONOCYTES % 5.6 % (0.0-11.0); NEUTROPHIL # 14.6 10^3/ul (1.6-7.5); NEUTROPHILS % 89.7 % (39.0-77.0); PLATELET COUNT 251 10^3/UL (140-415); POSITIVE DIFF @See below; RED BLOOD COUNT 4.69 10^6/ul (4.70-6.10)
[2017-10-06 08:02] LABS: WHITE BLOOD COUNT 16.3 10^3/ul (4.8-10.8)
[2017-10-06 08:19] LABS: ALANINE AMINOTRANSFERASE 82 IU/L (13-69); ALBUMIN 2.4 g/dl (3.3-4.9); ALBUMIN/GLOBULIN RATIO 0.61; ALKALINE PHOSPHATASE 203 IU/L (42-121); ANION GAP 14 (8-16); ASPARTATE AMINO TRANSFERASE 157 IU/L (15-46); BLOOD UREA NITROGEN 22 mg/dl (7-20); CALCIUM 7.6 mg/dl (8.4-10.2); CARBON DIOXIDE 28 mmol/L (21-31); CHLORIDE 103 mmol/L (97-110); CREATININE 0.75 mg/dl (0.61-1.24); GLUCOSE 185 mg/dl (70-220); MAGNESIUM 1.6 mg/dl (1.7-2.5); POTASSIUM 3.7 mmol/L (3.5-5.1); SODIUM 141 mmol/L (135-144); TOTAL PROTEIN 6.3 g/dl (6.1-8.1)
[2017-10-06 08:27] LABS: PARTIAL THROMBOPLASTIN TIME 121.3 Sec (25.0-35.0)
[2017-10-06 08:27] LABS: B-TYPE NATRIURETIC PEPTIDE 22800 PG/ML (0-450)
[2017-10-06] MEDS: OXYMETAZOLINE 0.05% 15 ML NAS SPRAY NASAL ×2 (08:29→20:37)
[2017-10-06] MEDS: POLYETHYLENE GLYCOL 17 GM PACKET PO ×2 (08:29→20:39)
[2017-10-06] MEDS: CEFEPIME 1GM/50 ML (PMX) 50 ML IVPB ×2 (08:29→20:37)
[2017-10-06] MEDS: ASPIRIN 81 MG TAB PO (08:29)
[2017-10-06] MEDS: INSULIN ASPART [NOVOLOG] 3 ML PEN SC ×7 (08:30→20:36)
[2017-10-06] MEDS: CIPROFLOXACIN 0.3% 2.5 ML OPH BOTH EYES ×2 (08:31→20:37)
[2017-10-06] MEDS: HEPARIN 25000 UNITS/250 ML 250 ML IV ×2 (09:14→18:07)
[2017-10-06 09:40] LABS: DIGOXIN 0.9 ng/ml (1.0-2.0)
[2017-10-06] MEDS: DIGOXIN 0.125 MG TAB PO (13:21)
[2017-10-06 17:58] LABS: PARTIAL THROMBOPLASTIN TIME 59.5 Sec (25.0-35.0)
[2017-10-06] MEDS: FAMOTIDINE 20 MG INJ IV (20:37)
[2017-10-06] MEDS: INSULIN GLARGINE [LANtus] 3 ML PEN SC (20:37)
[2017-10-07] MEDS: LEVALBUTEROL (NEB) 1.25 MG/0.5 ML AMP HHN ×6 (01:28→21:27)
[2017-10-07] MEDS: HEPARIN 1000 UNITS/ML 10 ML INJ IV (01:56)
[2017-10-07] MEDS: HEPARIN 25000 UNITS/250 ML 250 ML IV ×3 (02:00→23:44)
[2017-10-07] MEDS: CIPROFLOXACIN 500 MG TAB PO (06:13)
[2017-10-07] MEDS: INSULIN ASPART [NOVOLOG] 3 ML PEN SC ×7 (08:00→20:15)
[2017-10-07] MEDS: ASPIRIN 81 MG TAB PO (08:40)
[2017-10-07] MEDS: CIPROFLOXACIN 0.3% 2.5 ML OPH BOTH EYES ×2 (08:40→20:16)
[2017-10-07] MEDS: OXYMETAZOLINE 0.05% 15 ML NAS SPRAY NASAL ×2 (08:40→20:17)
[2017-10-07] MEDS: POLYETHYLENE GLYCOL 17 GM PACKET PO ×2 (08:43→20:12)
[2017-10-07 10:36] LABS: PARTIAL THROMBOPLASTIN TIME 137.4 Sec (25.0-35.0)
[2017-10-07] MEDS: CEFEPIME 1GM/50 ML (PMX) 50 ML IVPB ×2 (10:47→21:00)
[2017-10-07] MEDS: DIGOXIN 0.125 MG TAB PO (13:04)
[2017-10-07 18:42] LABS: PARTIAL THROMBOPLASTIN TIME 81.4 Sec (25.0-35.0)
[2017-10-07] MEDS: INSULIN GLARGINE [LANtus] 3 ML PEN SC (20:15)
[2017-10-07] MEDS: FAMOTIDINE 20 MG INJ IV (20:16)
[2017-10-07] MEDS: HALOPERIDOL 5 MG INJ IM (23:01)
[2017-10-07 23:23] LABS: PARTIAL THROMBOPLASTIN TIME 57.7 Sec (25.0-35.0)
[2017-10-08] MEDS: LEVALBUTEROL (NEB) 1.25 MG/0.5 ML AMP HHN ×7 (01:20→20:41)
[2017-10-08] MEDS: INSULIN ASPART [NOVOLOG] 3 ML PEN SC ×8 (08:00→22:16)
[2017-10-08 08:39] LABS: PARTIAL THROMBOPLASTIN TIME > 180.0 Sec (25.0-35.0)
[2017-10-08] MEDS: HEPARIN 25000 UNITS/250 ML 250 ML IV ×2 (09:46→17:48)
[2017-10-08] MEDS: CIPROFLOXACIN 0.3% 2.5 ML OPH BOTH EYES ×2 (11:14→21:02)
[2017-10-08] MEDS: CEFEPIME 1GM/50 ML (PMX) 50 ML IVPB ×2 (11:14→21:06)
[2017-10-08] MEDS: OXYMETAZOLINE 0.05% 15 ML NAS SPRAY NASAL ×2 (11:14→17:26)
[2017-10-08] MEDS: ASPIRIN 81 MG TAB PO (11:15)
[2017-10-08] MEDS: predniSONE 20 MG TAB PO (11:20)
[2017-10-08] MEDS: DIGOXIN 0.125 MG TAB PO (13:43)
[2017-10-08] MEDS: POLYETHYLENE GLYCOL 17 GM PACKET PO ×2 (13:44→21:00)
[2017-10-08 16:48] LABS: PARTIAL THROMBOPLASTIN TIME 93.9 Sec (25.0-35.0)
[2017-10-08] MEDS: ACETAMINOPHEN 325 MG TAB PO (21:02)
[2017-10-08] MEDS: FAMOTIDINE 20 MG INJ IV (21:03)
[2017-10-08] MEDS: INSULIN GLARGINE [LANtus] 3 ML PEN SC (21:04)
[2017-10-08] MEDS: morphine 2 MG INJ IV (22:54)
[2017-10-09] MEDS: LEVALBUTEROL (NEB) 1.25 MG/0.5 ML AMP HHN ×6 (00:50→20:00)
[2017-10-09] MEDS: LORAZEPAM 2 MG INJ IV (01:44)
[2017-10-09 06:48] LABS: ADD MAN DIFF? NO
[2017-10-09 07:00] LABS: WHITE BLOOD COUNT 21.9 10^3/ul (4.8-10.8)
[2017-10-09 07:00] LABS: ABNORMAL IP MESSAGE 1; BASOPHILS % 0.1 % (0.0-2.0); HEMATOCRIT 33.8 % (42.0-52.0); HEMOGLOBIN 11.5 g/dl (14.0-18.0); LYMPHOCYTES # 0.5 10^3/ul (0.8-2.9); LYMPHOCYTES % 2.5 % (15.0-51.0); MEAN CORPUSCULAR HEMOGLOBIN 26.6 pg (29.0-33.0); MEAN CORPUSCULAR VOLUME 78.2 fl (82.0-101.0); MEAN PLATELET VOLUME 10.7 fl (7.4-10.4); MONOCYTE # 0.8 10^3/ul (0.3-0.9); MONOCYTES % 3.8 % (0.0-11.0); NEUTROPHIL # 20.3 10^3/ul (1.6-7.5); NEUTROPHILS % 92.9 % (39.0-77.0); PLATELET COUNT 262 10^3/UL (140-415); POSITIVE DIFF @See below; RED BLOOD COUNT 4.32 10^6/ul (4.70-6.10); RED CELL DISTRIBUTION WIDTH 16.2 % (11.5-14.5)
[2017-10-09 07:13] LABS: MAGNESIUM 1.9 mg/dl (1.7-2.5)
[2017-10-09 07:16] LABS: DIGOXIN 0.8 ng/ml (1.0-2.0)
[2017-10-09 07:22] LABS: B-TYPE NATRIURETIC PEPTIDE 17700 PG/ML (0-450)
[2017-10-09 07:37] LABS: ALANINE AMINOTRANSFERASE 85 IU/L (13-69); ALBUMIN 2.5 g/dl (3.3-4.9); ALBUMIN/GLOBULIN RATIO 0.58; ALKALINE PHOSPHATASE 221 IU/L (42-121); ANION GAP 13 (8-16); ASPARTATE AMINO TRANSFERASE 138 IU/L (15-46); BILIRUBIN,INDIRECT 0.6 mg/dl (0-1.1); BILIRUBIN,TOTAL 0.6 mg/dl (0.2-1.3); BLOOD UREA NITROGEN 29 mg/dl (7-20); CALCIUM 7.5 mg/dl (8.4-10.2); CARBON DIOXIDE 28 mmol/L (21-31); CHLORIDE 104 mmol/L (97-110); CREATININE 0.75 mg/dl (0.61-1.24); GLUCOSE 121 mg/dl (70-220); POTASSIUM 3.9 mmol/L (3.5-5.1); SODIUM 141 mmol/L (135-144); TOTAL PROTEIN 6.8 g/dl (6.1-8.1)
[2017-10-09] MEDS: INSULIN ASPART [NOVOLOG] 3 ML PEN SC ×7 (08:00→20:50)
[2017-10-09] MEDS: POLYETHYLENE GLYCOL 17 GM PACKET PO ×2 (09:00→20:47)
[2017-10-09] MEDS: CEFEPIME 1GM/50 ML (PMX) 50 ML IVPB ×2 (09:13→20:47)
[2017-10-09] MEDS: CIPROFLOXACIN 0.3% 2.5 ML OPH BOTH EYES (09:13)
[2017-10-09] MEDS: OXYMETAZOLINE 0.05% 15 ML NAS SPRAY NASAL ×2 (09:14→20:47)
[2017-10-09] MEDS ORDERED: VANCOMYCIN IV PER PHARMACY XX (11:30)
[2017-10-09 11:58] LABS: AADO2 Arterial 232.2 mmHg (7.0-24.0); Allen Test ACCEPTAB; Arterial Base Excess 2.5 mmol/L (-3.0-3); Arterial Blood Gas Oxygen Sat 98.4 mmHG (95.0-100.0); Arterial COHb 0.9 % (0.0-3.0); Arterial Fraction of Oxyhgb 97.2 % (93.0-99.0); Arterial HCO3 25.9 mmol/L (22.0-26.0); Arterial MetHb 0.3 % (0.0-1.5); Arterial pCO2 35.8 mmhg (35-45); MODE NEBULIZER; Site Right Radial
[2017-10-09 12:40] LABS: AMMONIA < 9 umol/l (9-30)
[2017-10-09] MEDS: FUROSEMIDE 40 MG INJ IV (12:48)
[2017-10-09] MEDS: DIGOXIN 0.125 MG TAB PO (14:00)
[2017-10-09] MEDS: ASPIRIN 81 MG TAB PO (14:15)
[2017-10-09] MEDS: VANCOMYCIN 1 GM 250 ML IVPB (15:23)
[2017-10-09] MEDS: ENOXAPARIN 60 MG/0.6 ML SYG SC ×2 (15:23→23:22)
[2017-10-09] MEDS: FAMOTIDINE 20 MG INJ IV (20:46)
[2017-10-09] MEDS: INSULIN GLARGINE [LANtus] 3 ML PEN SC (20:49)
[2017-10-10] MEDS: LEVALBUTEROL (NEB) 1.25 MG/0.5 ML AMP HHN ×6 (00:47→20:59)
[2017-10-10] MEDS: VANCOMYCIN 500MG/NS (PMX) 100 ML IVPB ×2 (02:16→13:47)
[2017-10-10] MEDS: DILTIAZEM 25 MG INJ IV ×2 (03:06→09:48)
[2017-10-10] MEDS: LORAZEPAM 2 MG INJ IV (03:19)
[2017-10-10] MEDS: FUROSEMIDE 40 MG INJ IV (05:25)
[2017-10-10 08:41] LABS: ADD MAN DIFF? NO
[2017-10-10 08:42] LABS: WHITE BLOOD COUNT 18.5 10^3/ul (4.8-10.8)
[2017-10-10 08:42] LABS: ABNORMAL IP MESSAGE 1; BASOPHILS % 0.2 % (0.0-2.0); EOSINOPHILS % 0.1 % (0.0-7.0); HEMATOCRIT 35.7 % (42.0-52.0); HEMOGLOBIN 12.2 g/dl (14.0-18.0); LYMPHOCYTES # 0.5 10^3/ul (0.8-2.9); LYMPHOCYTES % 2.4 % (15.0-51.0); MEAN CORPUSCULAR HEMOGLOBIN 27.2 pg (29.0-33.0); MEAN CORPUSCULAR HGB CONC 34.2 g/dl (32.0-37.0); MEAN CORPUSCULAR VOLUME 79.5 fl (82.0-101.0); MEAN PLATELET VOLUME 10.6 fl (7.4-10.4); MONOCYTE # 0.4 10^3/ul (0.3-0.9); MONOCYTES % 2.3 % (0.0-11.0); NEUTROPHIL # 17.4 10^3/ul (1.6-7.5); NEUTROPHILS % 94.2 % (39.0-77.0); PLATELET COUNT 316 10^3/UL (140-415); POSITIVE DIFF @See below; RED BLOOD COUNT 4.49 10^6/ul (4.70-6.10); RED CELL DISTRIBUTION WIDTH 16.4 % (11.5-14.5)
[2017-10-10] MEDS: POLYETHYLENE GLYCOL 17 GM PACKET PO ×2 (09:00→21:01)
[2017-10-10] MEDS: INSULIN ASPART [NOVOLOG] 3 ML PEN SC ×7 (09:00→21:04)
[2017-10-10 09:07] LABS: INR 1.15; PROTIME 14.9 Sec (11.9-14.9); PT RATIO 1.2
[2017-10-10 09:08] LABS: PARTIAL THROMBOPLASTIN TIME 37.8 Sec (25.0-35.0)
[2017-10-10 09:10] LABS: ALANINE AMINOTRANSFERASE 91 IU/L (13-69); ALBUMIN 2.9 g/dl (3.3-4.9); ALKALINE PHOSPHATASE 285 IU/L (42-121); ANION GAP 14 (8-16); ASPARTATE AMINO TRANSFERASE 140 IU/L (15-46); BILIRUBIN,INDIRECT 0.8 mg/dl (0-1.1); BILIRUBIN,TOTAL 0.8 mg/dl (0.2-1.3); BLOOD UREA NITROGEN 29 mg/dl (7-20); CALCIUM 7.7 mg/dl (8.4-10.2); CARBON DIOXIDE 32 mmol/L (21-31); CHLORIDE 98 mmol/L (97-110); CREATININE 0.84 mg/dl (0.61-1.24); GLUCOSE 196 mg/dl (70-220); MAGNESIUM 1.7 mg/dl (1.7-2.5); POTASSIUM 3.6 mmol/L (3.5-5.1); SODIUM 140 mmol/L (135-144); TOTAL PROTEIN 7.7 g/dl (6.1-8.1)
[2017-10-10] MEDS: OXYMETAZOLINE 0.05% 15 ML NAS SPRAY NASAL ×2 (09:25→21:01)
[2017-10-10] MEDS: ENOXAPARIN 60 MG/0.6 ML SYG SC ×2 (09:30→21:12)
[2017-10-10] MEDS: CEFEPIME 1GM/50 ML (PMX) 50 ML IVPB ×2 (09:38→21:11)
[2017-10-10] MEDS: DIGOXIN 500 MCG INJ IV (11:03)
[2017-10-10] MEDS: ASPIRIN 81 MG TAB PO (11:03)
[2017-10-10] MEDS: DIGOXIN 0.125 MG TAB PO (13:48)
[2017-10-10] MEDS: FUROSEMIDE 20 MG INJ IV (18:00)
[2017-10-10 20:27] LABS: AADO2 Arterial 111.6 mmHg (7.0-24.0); Allen Test ACCEPTAB; Arterial Base Excess 5.6 mmol/L (-3.0-3); Arterial COHb 0.6 % (0.0-3.0); Arterial Fraction of Oxyhgb 95.1 % (93.0-99.0); Arterial HCO3 29.5 mmol/L (22.0-26.0); Arterial MetHb 0.3 % (0.0-1.5); Arterial Total Hemglobin 13.2 g/dl (12.0-18.0); Arterial pCO2 40.2 mmhg (35-45); MODE NASAL CANNULA; Site Right Radial
[2017-10-10] MEDS: INSULIN GLARGINE [LANtus] 3 ML PEN SC (21:01)
[2017-10-10] MEDS: FAMOTIDINE 20 MG INJ IV (21:01)
[2017-10-10] MEDS: DILTIAZEM-D5W 125MG/125ML DRIP 125 ML IV (21:23)
[2017-10-11] MEDS: LEVALBUTEROL (NEB) 1.25 MG/0.5 ML AMP HHN ×6 (00:45→21:04)
[2017-10-11 01:22] LABS: VANCOMYCIN,TROUGH 10.5 ug/ml (10.0-20.0)
[2017-10-11] MEDS: VANCOMYCIN 500MG/NS (PMX) 100 ML IVPB (01:53)
[2017-10-11] MEDS: FUROSEMIDE 40 MG INJ IV (06:00)
[2017-10-11 07:02] LABS: ADD MAN DIFF? NO
[2017-10-11 07:04] LABS: WHITE BLOOD COUNT 16.5 10^3/ul (4.8-10.8)
[2017-10-11 07:04] LABS: BASOPHILS % 0.2 % (0.0-2.0); EOSINOPHILS % 0.2 % (0.0-7.0); HEMATOCRIT 34.4 % (42.0-52.0); HEMOGLOBIN 11.7 g/dl (14.0-18.0); LYMPHOCYTES # 0.9 10^3/ul (0.8-2.9); LYMPHOCYTES % 5.3 % (15.0-51.0); MEAN CORPUSCULAR VOLUME 79.3 fl (82.0-101.0); MEAN PLATELET VOLUME 11.8 fl (7.4-10.4); MONOCYTE # 1.1 10^3/ul (0.3-0.9); MONOCYTES % 6.4 % (0.0-11.0); NEUTROPHIL # 14.4 10^3/ul (1.6-7.5); NEUTROPHILS % 87.4 % (39.0-77.0); PLATELET COUNT 247 10^3/UL (140-415); RED BLOOD COUNT 4.34 10^6/ul (4.70-6.10); RED CELL DISTRIBUTION WIDTH 17.2 % (11.5-14.5)
[2017-10-11 07:21] LABS: ALANINE AMINOTRANSFERASE 77 IU/L (13-69); ALBUMIN 2.9 g/dl (3.3-4.9); ALBUMIN/GLOBULIN RATIO 0.69; ALKALINE PHOSPHATASE 236 IU/L (42-121); ANION GAP 14 (8-16); ASPARTATE AMINO TRANSFERASE 114 IU/L (15-46); BILIRUBIN,INDIRECT 0.8 mg/dl (0-1.1); BILIRUBIN,TOTAL 0.8 mg/dl (0.2-1.3); BLOOD UREA NITROGEN 27 mg/dl (7-20); CALCIUM 7.6 mg/dl (8.4-10.2); CARBON DIOXIDE 33 mmol/L (21-31); CHLORIDE 98 mmol/L (97-110); CREATININE 0.83 mg/dl (0.61-1.24); GLUCOSE 97 mg/dl (70-220); POTASSIUM 3.4 mmol/L (3.5-5.1); SODIUM 142 mmol/L (135-144); TOTAL PROTEIN 7.1 g/dl (6.1-8.1)
[2017-10-11 07:23] LABS: INR 1.25; PROTIME 15.9 Sec (11.9-14.9); PT RATIO 1.2
[2017-10-11 07:24] LABS: PARTIAL THROMBOPLASTIN TIME 40.4 Sec (25.0-35.0)
[2017-10-11] MEDS: INSULIN ASPART [NOVOLOG] 3 ML PEN SC ×7 (08:00→21:41)
[2017-10-11] MEDS: OXYMETAZOLINE 0.05% 15 ML NAS SPRAY NASAL ×2 (09:00→21:42)
[2017-10-11] MEDS: CEFEPIME 1GM/50 ML (PMX) 50 ML IVPB ×2 (09:00→21:34)
[2017-10-11] MEDS: ASPIRIN 81 MG TAB PO (09:53)
[2017-10-11] MEDS: POLYETHYLENE GLYCOL 17 GM PACKET PO ×2 (09:54→21:33)
[2017-10-11] MEDS: ENOXAPARIN 60 MG/0.6 ML SYG SC ×2 (09:54→21:00)
[2017-10-11] MEDS: POTASSIUM CHLORIDE (SR) 20 MEQ TAB PO (11:40)
[2017-10-11] MEDS: DIGOXIN 0.125 MG TAB PO (12:46)
[2017-10-11] MEDS: VANCOMYCIN 750 MG in DEXTROSE 5% 150 ML IVPB (13:00)
[2017-10-11] MEDS: FAMOTIDINE 20 MG INJ IV (21:34)
[2017-10-11] MEDS: INSULIN GLARGINE [LANtus] 3 ML PEN SC (21:40)
[2017-10-11] MEDS ORDERED: VITAMIN A & D 5 GM OINT PACKET TOP (23:27)
[2017-10-12] MEDS: DILTIAZEM-D5W 125MG/125ML DRIP 125 ML IV ×2 (00:51→05:44)
[2017-10-12] MEDS: VANCOMYCIN 750 MG in DEXTROSE 5% 150 ML IVPB ×2 (01:35→15:11)
[2017-10-12] MEDS: LEVALBUTEROL (NEB) 1.25 MG/0.5 ML AMP HHN ×6 (01:36→20:26)
[2017-10-12] MEDS: FUROSEMIDE 40 MG INJ IV (05:41)
[2017-10-12] MEDS: INSULIN ASPART [NOVOLOG] 3 ML PEN SC ×7 (08:00→20:31)
[2017-10-12] MEDS: SOD CHLORIDE 0.9% 250 ML IV* (08:19)
[2017-10-12] MEDS: CEFEPIME 1GM/50 ML (PMX) 50 ML IVPB ×2 (08:29→20:39)
[2017-10-12] MEDS: ENOXAPARIN 60 MG/0.6 ML SYG SC ×2 (08:29→20:33)
[2017-10-12] MEDS: OXYMETAZOLINE 0.05% 15 ML NAS SPRAY NASAL ×2 (08:29→20:39)
[2017-10-12] MEDS: POLYETHYLENE GLYCOL 17 GM PACKET PO ×2 (08:29→20:23)
[2017-10-12] MEDS: ASPIRIN 81 MG TAB PO (08:30)
[2017-10-12 08:58] LABS: ADD MAN DIFF? NO
[2017-10-12] MEDS: INFLUENZA VIRUS VACCINE 0.5 ML (DISPENSING) IM* (09:00)
[2017-10-12 09:03] LABS: WHITE BLOOD COUNT 16.2 10^3/ul (4.8-10.8)
[2017-10-12 09:03] LABS: BASOPHILS % 0.2 % (0.0-2.0); EOSINOPHILS % 0.1 % (0.0-7.0); HEMATOCRIT 36.4 % (42.0-52.0); HEMOGLOBIN 12.3 g/dl (14.0-18.0); LYMPHOCYTES # 0.7 10^3/ul (0.8-2.9); LYMPHOCYTES % 4.3 % (15.0-51.0); MEAN CORPUSCULAR HEMOGLOBIN 26.8 pg (29.0-33.0); MEAN CORPUSCULAR HGB CONC 33.8 g/dl (32.0-37.0); MEAN CORPUSCULAR VOLUME 79.3 fl (82.0-101.0); MEAN PLATELET VOLUME 10.7 fl (7.4-10.4); NEUTROPHIL # 14.4 10^3/ul (1.6-7.5); NEUTROPHILS % 88.7 % (39.0-77.0); PLATELET COUNT 292 10^3/UL (140-415); RED BLOOD COUNT 4.59 10^6/ul (4.70-6.10); RED CELL DISTRIBUTION WIDTH 16.7 % (11.5-14.5)
[2017-10-12 09:37] LABS: ANION GAP 11 (8-16); BLOOD UREA NITROGEN 27 mg/dl (7-20); CARBON DIOXIDE 39 mmol/L (21-31); CHLORIDE 94 mmol/L (97-110); CREATININE 0.85 mg/dl (0.61-1.24); GLUCOSE 144 mg/dl (70-220); SODIUM 141 mmol/L (135-144)
[2017-10-12 09:40] LABS: POTASSIUM 2.9 mmol/L (3.5-5.1)
[2017-10-12] MEDS: POTASSIUM CHLORIDE 100 ML IVPB ×2 (10:48→12:48)
[2017-10-12 11:09] LABS: MAGNESIUM 1.7 mg/dl (1.7-2.5)
[2017-10-12] MEDS: MAGNESIUM SULFATE 2 GM/50 ML 50 ML IVPB (12:48)
[2017-10-12] MEDS: DIGOXIN 0.125 MG TAB PO (12:59)
[2017-10-12] MEDS: POTASSIUM CHLORIDE (SR) 20 MEQ TAB PO (17:58)
[2017-10-12] MEDS: FAMOTIDINE 20 MG INJ IV (20:23)
[2017-10-12] MEDS: INSULIN GLARGINE [LANtus] 3 ML PEN SC (20:32)
[2017-10-13] MEDS: LEVALBUTEROL (NEB) 1.25 MG/0.5 ML AMP HHN ×6 (00:48→21:18)
[2017-10-13] MEDS: VANCOMYCIN 750 MG in DEXTROSE 5% 150 ML IVPB (03:08)
[2017-10-13] MEDS: FUROSEMIDE 40 MG INJ IV (06:15)
[2017-10-13] MEDS: INSULIN ASPART [NOVOLOG] 3 ML PEN SC ×7 (08:00→20:15)
[2017-10-13 08:54] LABS: ADD MAN DIFF? NO
[2017-10-13] MEDS: POLYETHYLENE GLYCOL 17 GM PACKET PO ×2 (09:00→20:17)
[2017-10-13] MEDS: ENOXAPARIN 60 MG/0.6 ML SYG SC (09:00)
[2017-10-13 09:04] LABS: WHITE BLOOD COUNT 15.9 10^3/ul (4.8-10.8)
[2017-10-13 09:04] LABS: BASOPHILS % 0.1 % (0.0-2.0); EOSINOPHILS % 0.1 % (0.0-7.0); HEMATOCRIT 34.9 % (42.0-52.0); HEMOGLOBIN 11.7 g/dl (14.0-18.0); LYMPHOCYTES # 0.7 10^3/ul (0.8-2.9); LYMPHOCYTES % 4.2 % (15.0-51.0); MEAN CORPUSCULAR HEMOGLOBIN 26.9 pg (29.0-33.0); MEAN CORPUSCULAR HGB CONC 33.5 g/dl (32.0-37.0); MEAN CORPUSCULAR VOLUME 80.2 fl (82.0-101.0); MEAN PLATELET VOLUME 10.8 fl (7.4-10.4); MONOCYTE # 0.9 10^3/ul (0.3-0.9); MONOCYTES % 5.4 % (0.0-11.0); NEUTROPHIL # 14.2 10^3/ul (1.6-7.5); NEUTROPHILS % 89.5 % (39.0-77.0); PLATELET COUNT 316 10^3/UL (140-415); RED BLOOD COUNT 4.35 10^6/ul (4.70-6.10); RED CELL DISTRIBUTION WIDTH 16.9 % (11.5-14.5)
[2017-10-13 09:34] LABS: ALANINE AMINOTRANSFERASE 79 IU/L (13-69); ALBUMIN 3.3 g/dl (3.3-4.9); ALBUMIN/GLOBULIN RATIO 0.71; ALKALINE PHOSPHATASE 282 IU/L (42-121); ANION GAP 13 (8-16); ASPARTATE AMINO TRANSFERASE 105 IU/L (15-46); BLOOD UREA NITROGEN 25 mg/dl (7-20); CALCIUM 8.2 mg/dl (8.4-10.2); CARBON DIOXIDE 37 mmol/L (21-31); CHLORIDE 95 mmol/L (97-110); CREATININE 0.92 mg/dl (0.61-1.24); GLUCOSE 178 mg/dl (70-220); POTASSIUM 3.8 mmol/L (3.5-5.1); SODIUM 141 mmol/L (135-144); TOTAL PROTEIN 7.9 g/dl (6.1-8.1)
[2017-10-13 09:36] LABS: PHOSPHORUS 3.1 mg/dl (2.5-4.9)
[2017-10-13] MEDS ORDERED: PHENYLephrine (100 MCG/ML) 5ML SYG ×2 (10:35→11:53)
[2017-10-13] MEDS ORDERED: FENTAnyl 50 MCG/ML VIAL (11:05)
[2017-10-13] MEDS ORDERED: ETOMIDATE 20 MG INJ (11:55)
[2017-10-13] MEDS ORDERED: SUGAMMADEX SODIUM 200 MG/2 ML VIAL IV (11:55)
[2017-10-13] MEDS ORDERED: CEFAZOLIN 1 GM INJ (11:55)
[2017-10-13] MEDS ORDERED: ROCURONIUM 50 MG INJ (11:55)
[2017-10-13] MEDS ORDERED: SUCCINYLCHOLINE CHLORIDE 100 MG/5 ML SYG IV (11:55)
[2017-10-13] MEDS ORDERED: PROPOFOL 20 ML (11:55)
[2017-10-13] MEDS ORDERED: NACL 0.9% 3 ML SYG IV (12:30)
[2017-10-13] MEDS: POLYMYXIN/BACITRACIN 1L IRRIG (12:43)
[2017-10-13] MEDS: FENTAnyl 50 MCG/ML VIAL IV ×2 (12:48→12:56)
[2017-10-13] MEDS: D5W-0.45 NACL + KCL 20 MEQ 1,000 ML IV (13:56)
[2017-10-13] MEDS: ASPIRIN 81 MG TAB PO (13:57)
[2017-10-13] MEDS: DIGOXIN 0.125 MG TAB PO (13:57)
[2017-10-13] MEDS: CEFAZOLIN 1 GM/50 ML (PMX) 50 ML IVPB ×2 (13:57→20:12)
[2017-10-13 15:06] LABS: ADD MAN DIFF? NO
[2017-10-13 15:07] LABS: ABNORMAL IP MESSAGE 1; BASOPHILS % 0.2 % (0.0-2.0); EOSINOPHILS % 0.2 % (0.0-7.0); HEMATOCRIT 32.7 % (42.0-52.0); LYMPHOCYTES # 0.5 10^3/ul (0.8-2.9); LYMPHOCYTES % 4.2 % (15.0-51.0); MEAN CORPUSCULAR HEMOGLOBIN 27.2 pg (29.0-33.0); MEAN CORPUSCULAR HGB CONC 33.6 g/dl (32.0-37.0); MEAN CORPUSCULAR VOLUME 80.7 fl (82.0-101.0); MEAN PLATELET VOLUME 10.9 fl (7.4-10.4); MONOCYTE # 0.5 10^3/ul (0.3-0.9); MONOCYTES % 3.8 % (0.0-11.0); NEUTROPHIL # 11.6 10^3/ul (1.6-7.5); PLATELET COUNT 311 10^3/UL (140-415); POSITIVE DIFF @See below; RED BLOOD COUNT 4.05 10^6/ul (4.70-6.10); RED CELL DISTRIBUTION WIDTH 17.4 % (11.5-14.5)
[2017-10-13 15:07] LABS: WHITE BLOOD COUNT 12.8 10^3/ul (4.8-10.8)
[2017-10-13] MEDS: morphine 2 MG INJ IV ×2 (15:12→22:40)
[2017-10-13] MEDS: OXYMETAZOLINE 0.05% 15 ML NAS SPRAY NASAL ×2 (15:15→20:17)
[2017-10-13 15:34] LABS: ANION GAP 14 (8-16); BLOOD UREA NITROGEN 24 mg/dl (7-20); CALCIUM 7.8 mg/dl (8.4-10.2); CARBON DIOXIDE 31 mmol/L (21-31); CHLORIDE 99 mmol/L (97-110); CREATININE 0.91 mg/dl (0.61-1.24); GLUCOSE 195 mg/dl (70-220); POTASSIUM 3.8 mmol/L (3.5-5.1); SODIUM 140 mmol/L (135-144)
[2017-10-13] MEDS: HYDROCODONE/APAP (5/325) TAB NGT (17:46)
[2017-10-13] MEDS: INSULIN GLARGINE [LANtus] 3 ML PEN SC (20:14)
[2017-10-13] MEDS: FAMOTIDINE 20 MG INJ IV (20:16)
[2017-10-13] MEDS: POTASSIUM CHLORIDE 20 MEQ in SOD CHLORIDE 0.9% 1,000 ML IV (22:25)
[2017-10-14] MEDS: LEVALBUTEROL (NEB) 1.25 MG/0.5 ML AMP HHN ×7 (00:47→21:09)
[2017-10-14] MEDS: DILTIAZEM 25 MG INJ IV (01:06)
[2017-10-14] MEDS: DEXTROSE 50% 50 ML SYRINGE IV ×2 (02:11→08:10)
[2017-10-14] MEDS: HYDROCODONE/APAP (5/325) TAB NGT (02:37)
[2017-10-14] MEDS: CEFAZOLIN 1 GM/50 ML (PMX) 50 ML IVPB (03:59)
[2017-10-14] MEDS: POTASSIUM CHLORIDE 20 MEQ in SOD CHLORIDE 0.9% 1,000 ML IV ×2 (06:36→17:24)
[2017-10-14 08:00] LABS: ADD MAN DIFF? NO
[2017-10-14] MEDS: INSULIN ASPART [NOVOLOG] 3 ML PEN SC ×7 (08:00→21:03)
[2017-10-14 08:07] LABS: WHITE BLOOD COUNT 12.9 10^3/ul (4.8-10.8)
[2017-10-14 08:07] LABS: BASOPHILS % 0.2 % (0.0-2.0); EOSINOPHILS # 0.1 10^3/ul (0.0-0.5); EOSINOPHILS % 0.5 % (0.0-7.0); HEMATOCRIT 30.7 % (42.0-52.0); HEMOGLOBIN 10.2 g/dl (14.0-18.0); LYMPHOCYTES # 0.8 10^3/ul (0.8-2.9); LYMPHOCYTES % 6.1 % (15.0-51.0); MEAN CORPUSCULAR HEMOGLOBIN 27.3 pg (29.0-33.0); MEAN CORPUSCULAR HGB CONC 33.2 g/dl (32.0-37.0); MEAN CORPUSCULAR VOLUME 82.1 fl (82.0-101.0); MEAN PLATELET VOLUME 11.1 fl (7.4-10.4); MONOCYTE # 1.1 10^3/ul (0.3-0.9); MONOCYTES % 8.2 % (0.0-11.0); NEUTROPHIL # 10.9 10^3/ul (1.6-7.5); NEUTROPHILS % 84.5 % (39.0-77.0); PLATELET COUNT 271 10^3/UL (140-415); RED BLOOD COUNT 3.74 10^6/ul (4.70-6.10)
[2017-10-14 08:27] LABS: MAGNESIUM 1.9 mg/dl (1.7-2.5)
[2017-10-14 08:27] LABS: PHOSPHORUS 3.5 mg/dl (2.5-4.9)
[2017-10-14 08:28] LABS: DIGOXIN 0.9 ng/ml (1.0-2.0)
[2017-10-14 08:29] LABS: ALANINE AMINOTRANSFERASE 62 IU/L (13-69); ALBUMIN 2.8 g/dl (3.3-4.9); ALBUMIN/GLOBULIN RATIO 0.59; ALKALINE PHOSPHATASE 223 IU/L (42-121); ANION GAP 14 (8-16); ASPARTATE AMINO TRANSFERASE 88 IU/L (15-46); BILIRUBIN,INDIRECT 0.5 mg/dl (0-1.1); BILIRUBIN,TOTAL 0.5 mg/dl (0.2-1.3); BLOOD UREA NITROGEN 26 mg/dl (7-20); CALCIUM 7.8 mg/dl (8.4-10.2); CARBON DIOXIDE 32 mmol/L (21-31); CHLORIDE 102 mmol/L (97-110); CREATININE 0.91 mg/dl (0.61-1.24); SODIUM 144 mmol/L (135-144); TOTAL PROTEIN 7.5 g/dl (6.1-8.1)
[2017-10-14 08:33] LABS: GLUCOSE 38 mg/dl (70-220)
[2017-10-14 08:34] LABS: CREATINE KINASE 607 IU/L (23-200)
[2017-10-14 08:39] LABS: CK INDEX 3.5
[2017-10-14] MEDS: OXYMETAZOLINE 0.05% 15 ML NAS SPRAY NASAL ×2 (09:00→21:00)
[2017-10-14] MEDS: POLYETHYLENE GLYCOL 17 GM PACKET PO ×2 (09:44→20:40)
[2017-10-14] MEDS: ASPIRIN 81 MG TAB PO (09:44)
[2017-10-14] MEDS: DIGOXIN 0.125 MG TAB PO (14:05)
[2017-10-14] MEDS: FAMOTIDINE 20 MG INJ IV (20:40)
[2017-10-14] MEDS: INSULIN GLARGINE [LANtus] 3 ML PEN SC (21:04)
[2017-10-15] MEDS: LEVALBUTEROL (NEB) 1.25 MG/0.5 ML AMP HHN ×6 (01:10→21:37)
[2017-10-15] MEDS: POTASSIUM CHLORIDE 20 MEQ in SOD CHLORIDE 0.9% 1,000 ML IV ×2 (03:39→12:54)
[2017-10-15] MEDS: morphine 2 MG INJ IV ×2 (04:36→21:12)
[2017-10-15] MEDS: LORAZEPAM 2 MG INJ IV (05:30)
[2017-10-15] MEDS: INSULIN ASPART [NOVOLOG] 3 ML PEN SC ×7 (07:53→21:04)
[2017-10-15] MEDS: ASPIRIN 81 MG TAB PO (08:17)
[2017-10-15] MEDS: POLYETHYLENE GLYCOL 17 GM PACKET PO ×2 (08:17→21:00)
[2017-10-15] MEDS: OXYMETAZOLINE 0.05% 15 ML NAS SPRAY NASAL ×2 (08:20→21:00)
[2017-10-15 09:03] LABS: ADD MAN DIFF? NO
[2017-10-15 09:08] LABS: BASOPHILS % 0.1 % (0.0-2.0); EOSINOPHILS # 0.1 10^3/ul (0.0-0.5); EOSINOPHILS % 0.6 % (0.0-7.0); HEMATOCRIT 25.7 % (42.0-52.0); HEMOGLOBIN 8.5 g/dl (14.0-18.0); LYMPHOCYTES # 0.7 10^3/ul (0.8-2.9); LYMPHOCYTES % 8.7 % (15.0-51.0); MEAN CORPUSCULAR HEMOGLOBIN 27.2 pg (29.0-33.0); MEAN CORPUSCULAR HGB CONC 33.1 g/dl (32.0-37.0); MEAN CORPUSCULAR VOLUME 82.1 fl (82.0-101.0); MEAN PLATELET VOLUME 10.5 fl (7.4-10.4); MONOCYTE # 0.5 10^3/ul (0.3-0.9); MONOCYTES % 6.6 % (0.0-11.0); NEUTROPHIL # 6.8 10^3/ul (1.6-7.5); NEUTROPHILS % 83.4 % (39.0-77.0); PLATELET COUNT 258 10^3/UL (140-415); RED BLOOD COUNT 3.13 10^6/ul (4.70-6.10); RED CELL DISTRIBUTION WIDTH 17.4 % (11.5-14.5)
[2017-10-15 09:08] LABS: WHITE BLOOD COUNT 8.2 10^3/ul (4.8-10.8)
[2017-10-15 09:24] LABS: MAGNESIUM 1.8 mg/dl (1.7-2.5)
[2017-10-15 09:24] LABS: PHOSPHORUS 2.7 mg/dl (2.5-4.9)
[2017-10-15 09:27] LABS: ALANINE AMINOTRANSFERASE 41 IU/L (13-69); ALBUMIN 2.5 g/dl (3.3-4.9); ALBUMIN/GLOBULIN RATIO 0.58; ALKALINE PHOSPHATASE 199 IU/L (42-121); ANION GAP 12 (8-16); ASPARTATE AMINO TRANSFERASE 79 IU/L (15-46); BILIRUBIN,INDIRECT 0.7 mg/dl (0-1.1); BILIRUBIN,TOTAL 0.7 mg/dl (0.2-1.3); BLOOD UREA NITROGEN 24 mg/dl (7-20); CALCIUM 7.5 mg/dl (8.4-10.2); CARBON DIOXIDE 32 mmol/L (21-31); CHLORIDE 100 mmol/L (97-110); CREATININE 0.88 mg/dl (0.61-1.24); GLUCOSE 112 mg/dl (70-220); POTASSIUM 3.8 mmol/L (3.5-5.1); SODIUM 140 mmol/L (135-144); TOTAL PROTEIN 6.8 g/dl (6.1-8.1)
[2017-10-15] MEDS: DIGOXIN 0.125 MG TAB PO (14:11)
[2017-10-15] MEDS: INSULIN GLARGINE [LANtus] 3 ML PEN SC (20:00)
[2017-10-15] MEDS: FAMOTIDINE 20 MG INJ IV (21:09)
[2017-10-15] MEDS: METOPROLOL 5 MG INJ IV (23:00)
[2017-10-16] MEDS: LEVALBUTEROL (NEB) 1.25 MG/0.5 ML AMP HHN ×6 (01:02→20:36)
[2017-10-16] MEDS: POTASSIUM CHLORIDE 20 MEQ in SOD CHLORIDE 0.9% 1,000 ML IV ×3 (05:31→23:04)
[2017-10-16 07:56] LABS: ADD MAN DIFF? NO
[2017-10-16 08:02] LABS: WHITE BLOOD COUNT 7.7 10^3/ul (4.8-10.8)
[2017-10-16 08:02] LABS: BASOPHILS % 0.3 % (0.0-2.0); EOSINOPHILS # 0.1 10^3/ul (0.0-0.5); EOSINOPHILS % 1.2 % (0.0-7.0); HEMATOCRIT 25.1 % (42.0-52.0); HEMOGLOBIN 8.4 g/dl (14.0-18.0); LYMPHOCYTES # 0.7 10^3/ul (0.8-2.9); LYMPHOCYTES % 8.5 % (15.0-51.0); MEAN CORPUSCULAR HEMOGLOBIN 27.3 pg (29.0-33.0); MEAN CORPUSCULAR HGB CONC 33.5 g/dl (32.0-37.0); MEAN CORPUSCULAR VOLUME 81.5 fl (82.0-101.0); MEAN PLATELET VOLUME 10.6 fl (7.4-10.4); MONOCYTE # 0.6 10^3/ul (0.3-0.9); MONOCYTES % 7.6 % (0.0-11.0); NEUTROPHIL # 6.3 10^3/ul (1.6-7.5); NEUTROPHILS % 81.6 % (39.0-77.0); PLATELET COUNT 261 10^3/UL (140-415); RED BLOOD COUNT 3.08 10^6/ul (4.70-6.10)
[2017-10-16 08:39] LABS: ALANINE AMINOTRANSFERASE 47 IU/L (13-69); ALBUMIN 2.5 g/dl (3.3-4.9); ALBUMIN/GLOBULIN RATIO 0.59; ALKALINE PHOSPHATASE 189 IU/L (42-121); ANION GAP 10 (8-16); ASPARTATE AMINO TRANSFERASE 70 IU/L (15-46); BILIRUBIN,INDIRECT 0.5 mg/dl (0-1.1); BILIRUBIN,TOTAL 0.5 mg/dl (0.2-1.3); BLOOD UREA NITROGEN 23 mg/dl (7-20); CALCIUM 7.4 mg/dl (8.4-10.2); CARBON DIOXIDE 30 mmol/L (21-31); CHLORIDE 102 mmol/L (97-110); CREATININE 0.83 mg/dl (0.61-1.24); GLUCOSE 119 mg/dl (70-220); POTASSIUM 4.2 mmol/L (3.5-5.1); SODIUM 138 mmol/L (135-144); TOTAL PROTEIN 6.7 g/dl (6.1-8.1)
[2017-10-16 08:45] LABS: MAGNESIUM 1.8 mg/dl (1.7-2.5)
[2017-10-16] MEDS: INSULIN ASPART [NOVOLOG] 3 ML PEN SC ×7 (08:56→21:21)
[2017-10-16] MEDS: OXYMETAZOLINE 0.05% 15 ML NAS SPRAY NASAL ×2 (09:00→21:22)
[2017-10-16] MEDS: ASPIRIN 81 MG TAB PO (09:02)
[2017-10-16] MEDS: POLYETHYLENE GLYCOL 17 GM PACKET PO ×2 (09:02→21:14)
[2017-10-16] MEDS: DIGOXIN 0.125 MG TAB PO (12:30)
[2017-10-16] MEDS: FAMOTIDINE 20 MG INJ IV (21:13)
[2017-10-16] MEDS: INSULIN GLARGINE [LANtus] 3 ML PEN SC (21:17)
[2017-10-16] MEDS: DILTIAZEM 25 MG INJ IV (23:15)
[2017-10-16] MEDS: morphine 2 MG INJ IV (23:17)
[2017-10-17] MEDS: LEVALBUTEROL (NEB) 1.25 MG/0.5 ML AMP HHN ×5 (00:47→17:00)
[2017-10-17 06:36] LABS: DIGOXIN 0.8 ng/ml (1.0-2.0)
[2017-10-17 06:56] LABS: ALANINE AMINOTRANSFERASE 46 IU/L (13-69); ALBUMIN 2.5 g/dl (3.3-4.9); ALBUMIN/GLOBULIN RATIO 0.56; ALKALINE PHOSPHATASE 208 IU/L (42-121); ANION GAP 10 (8-16); ASPARTATE AMINO TRANSFERASE 69 IU/L (15-46); BILIRUBIN,INDIRECT 0.4 mg/dl (0-1.1); BILIRUBIN,TOTAL 0.4 mg/dl (0.2-1.3); BLOOD UREA NITROGEN 23 mg/dl (7-20); CALCIUM 7.5 mg/dl (8.4-10.2); CARBON DIOXIDE 30 mmol/L (21-31); CHLORIDE 101 mmol/L (97-110); CREATININE 0.91 mg/dl (0.61-1.24); GLUCOSE 115 mg/dl (70-220); MAGNESIUM 1.7 mg/dl (1.7-2.5); POTASSIUM 4.1 mmol/L (3.5-5.1); SODIUM 137 mmol/L (135-144); TOTAL PROTEIN 6.9 g/dl (6.1-8.1)
[2017-10-17] MEDS: INSULIN ASPART [NOVOLOG] 3 ML PEN SC ×6 (08:00→17:55)
[2017-10-17] MEDS: ASPIRIN 81 MG TAB PO (09:20)
[2017-10-17] MEDS: POLYETHYLENE GLYCOL 17 GM PACKET PO (09:25)
[2017-10-17] MEDS: OXYMETAZOLINE 0.05% 15 ML NAS SPRAY NASAL (09:31)
[2017-10-17] MEDS: DIGOXIN 500 MCG INJ IV (12:02)
[2017-10-17] MEDS: morphine 2 MG INJ IV (12:11)
[2017-10-17] MEDS: DIGOXIN 0.125 MG TAB PO (12:11)
[2017-10-17] MEDS: MAGNESIUM SULFATE 3 GM in DEXTROSE 5% 100 ML IVPB (13:21)
[2017-10-17] MEDS: POTASSIUM CHLORIDE 20 MEQ in SOD CHLORIDE 0.9% 1,000 ML IV (17:58)
== END 2017-10-17 19:29 | DRG 853 ==
LOC: MS4 10-01 23:54 → E/R 12:20 → ICU 19:17
PROC: 0Y6C0Z2 Detachment at Right Upper Leg, Mid, Open Approach (ICD-10-PCS; principal; 2017-10-13 10:00)
PROC: 02HV33Z Insertion of Infusion Device into Superior Vena Cava, Percutaneous Approach (ICD-10-PCS; 2017-10-13 10:26)
DX: A41.9 Sepsis, unspecified organism (principal); N17.0 Acute kidney failure with tubular necrosis; I21.A1 Myocardial infarction type 2; J96.01 Acute respiratory failure with hypoxia; R65.21 Severe sepsis with septic shock; G93.49 Other encephalopathy; J18.9 Pneumonia, unspecified organism; E11.00 Type 2 diabetes mellitus with hyperosmolarity without nonketotic hyperglycemic-hyperosmolar coma (NKHHC); I50.23 Acute on chronic systolic (congestive) heart failure; E11.52 Type 2 diabetes mellitus with diabetic peripheral angiopathy with gangrene; I96 Gangrene, not elsewhere classified; I69.351 Hemiplegia and hemiparesis following cerebral infarction affecting right dominant side; I42.9 Cardiomyopathy, unspecified; M62.82 Rhabdomyolysis; N39.0 Urinary tract infection, site not specified; R18.8 Other ascites; E87.5 Hyperkalemia; E11.65 Type 2 diabetes mellitus with hyperglycemia; E78.5 Hyperlipidemia, unspecified; H10.9 Unspecified conjunctivitis; I11.0 Hypertensive heart disease with heart failure; I48.91 Unspecified atrial fibrillation; I27.20 Pulmonary hypertension, unspecified; K74.60 Unspecified cirrhosis of liver; N25.89 Other disorders resulting from impaired renal tubular function; R31.0 Gross hematuria; B95.2 Enterococcus as the cause of diseases classified elsewhere; B96.4 Proteus (mirabilis) (morganii) as the cause of diseases classified elsewhere; Z87.891 Personal history of nicotine dependence; Z79.4 Long term (current) use of insulin
CPT/HCPCS: 36415; 36569; 36600; 70450; 71045; 74176; 76775; 76937; 80048; 80053; 80061; 80162; 80202; 81001; 81003; 82140; 82550; 82553; 82570; 82803; 82962; 83036; 83605; 83735; 83880; 84100; 84300; 84439; 84443; 84484; 84560; 85025; 85610; 85730; 86704; 86708; 86709; 86803; 86850; 86900; 86901; 86920; 87040; 87081; 87086; 87340; 87400; 88307; 89190; 92526; 92610; 93005; 93306; 93926; 93970; 93971; 94640; 94664; 96361; 96365; 96366; 96367; 96375; 96376; 97110; 97163; 97530; 99291-25; J1940

== ENCOUNTER 2017-10-31 22:24 | Inpatient (IN) | payer MEDICARE, MEDICAID, OTHER ==
[2017-10-31] MEDS: OXYMETAZOLINE 0.05% 15 ML NAS SPRAY NASAL (22:39)
[2017-11-01] MEDS ORDERED: DILTIAZEM 25 MG INJ IV (00:30)
[2017-11-01 01:05] LABS: ADD MAN DIFF? NO
[2017-11-01 01:08] LABS: BASOPHIL # 0.1 10^3/ul (0.0-0.1); BASOPHILS % 0.6 % (0.0-2.0); EOSINOPHILS # 0.1 10^3/ul (0.0-0.5); EOSINOPHILS % 1.5 % (0.0-7.0); HEMATOCRIT 35.7 % (42.0-52.0); HEMOGLOBIN 11.2 g/dl (14.0-18.0); LYMPHOCYTES # 1.8 10^3/ul (0.8-2.9); LYMPHOCYTES % 19.2 % (15.0-51.0); MEAN CORPUSCULAR HEMOGLOBIN 26.7 pg (29.0-33.0); MEAN CORPUSCULAR HGB CONC 31.4 g/dl (32.0-37.0); MEAN PLATELET VOLUME 9.8 fl (7.4-10.4); MONOCYTE # 0.7 10^3/ul (0.3-0.9); MONOCYTES % 7.3 % (0.0-11.0); NEUTROPHIL # 6.6 10^3/ul (1.6-7.5); PLATELET COUNT 298 10^3/UL (140-415); RED CELL DISTRIBUTION WIDTH 19.4 % (11.5-14.5)
[2017-11-01 01:08] LABS: WHITE BLOOD COUNT 9.3 10^3/ul (4.8-10.8)
[2017-11-01] MEDS: DILTIAZEM 25 MG INJ IV (01:12)
[2017-11-01] MEDS: DILTIAZEM-D5W 125MG/125ML DRIP 125 ML IV (01:13)
[2017-11-01] MEDS: SOD CHLORIDE 0.9% 500 ML IV (01:13)
[2017-11-01 01:32] LABS: ANION GAP 14 (8-16); BLOOD UREA NITROGEN 33 mg/dl (7-20); CALCIUM 8.6 mg/dl (8.4-10.2); CARBON DIOXIDE 31 mmol/L (21-31); CHLORIDE 101 mmol/L (97-110); CREATININE 1.01 mg/dl (0.61-1.24); GLUCOSE 123 mg/dl (70-220); POTASSIUM 3.8 mmol/L (3.5-5.1); SODIUM 142 mmol/L (135-144)
[2017-11-01 01:44] LABS: B-TYPE NATRIURETIC PEPTIDE 14400 PG/ML (0-450)
[2017-11-01 01:57] LABS: TROPONIN-I 0.178 ng/ml (0.00-0.12)
[2017-11-01 02:23] LABS: ADD UMIC NO; UR ASCORBIC ACID NEGATIVE (NEGATIVE); UR BILIRUBIN (Dip) NEGATIVE (NEGATIVE); UR BLOOD (Dip) NEGATIVE (NEGATIVE); UR CLARITY CLEAR (CLEAR); UR COLOR YELLOW (YELLOW); UR GLUCOSE (Dip) NEGATIVE (NEGATIVE); UR KETONES (Dip) NEGATIVE (NEGATIVE); UR LEUKOCYTE ESTERASE (Dip) NEGATIVE Leu/ul (NEGATIVE); UR NITRITE (Dip) NEGATIVE (NEGATIVE); UR SPECIFIC GRAVITY (Dip) 1.014 (1.003-1.030); UR TOTAL PROTEIN (Dip) NEGATIVE (NEGATIVE); UR UROBILINOGEN (Dip) 2+ mg/dL (NEGATIVE)
[2017-11-01] MEDS ORDERED: NITROGLYCERIN (SL) 0.4 MG TAB SL (04:30)
[2017-11-01] MEDS ORDERED: DOCUSATE SODIUM 100 MG CAP PO (04:30)
[2017-11-01] MEDS ORDERED: BISACODYL (EC) 5 MG TAB PO (04:30)
[2017-11-01] MEDS ORDERED: ONDANSETRON 4 MG INJ IV (04:30)
[2017-11-01] MEDS ORDERED: NACL 0.9% 3 ML SYG IV (04:30)
[2017-11-01] MEDS: ASPIRIN 81 MG TAB PO (04:40)
[2017-11-01] MEDS ORDERED: DEXTROSE 50% 50 ML SYRINGE IV ×2 (05:00)
[2017-11-01] MEDS ORDERED: GLUCOSE GEL 15 GRAM TUBE BUCCAL (05:00)
[2017-11-01] MEDS ORDERED: GLUCAGON 1 MG INJ IM (05:00)
[2017-11-01] MEDS ORDERED: GLUCOSE GEL 15 GRAM TUBE PO ×2 (05:00)
[2017-11-01 05:49] LABS: ADD MAN DIFF? NO
[2017-11-01 05:54] LABS: WHITE BLOOD COUNT 9.4 10^3/ul (4.8-10.8)
[2017-11-01 05:54] LABS: BASOPHIL # 0.1 10^3/ul (0.0-0.1); BASOPHILS % 0.7 % (0.0-2.0); EOSINOPHILS # 0.1 10^3/ul (0.0-0.5); HEMATOCRIT 34.6 % (42.0-52.0); LYMPHOCYTES # 2.2 10^3/ul (0.8-2.9); LYMPHOCYTES % 23.7 % (15.0-51.0); MEAN CORPUSCULAR HGB CONC 31.8 g/dl (32.0-37.0); MONOCYTE # 0.5 10^3/ul (0.3-0.9); MONOCYTES % 5.8 % (0.0-11.0); NEUTROPHIL # 6.4 10^3/ul (1.6-7.5); NEUTROPHILS % 68.4 % (39.0-77.0); PLATELET COUNT 299 10^3/UL (140-415); RED BLOOD COUNT 4.07 10^6/ul (4.70-6.10); RED CELL DISTRIBUTION WIDTH 19.1 % (11.5-14.5)
[2017-11-01] MEDS ORDERED: LORAZEPAM 2 MG INJ (06:45)
[2017-11-01] MEDS: LORAZEPAM 2 MG INJ IV (07:23)
[2017-11-01 07:32] LABS: ALANINE AMINOTRANSFERASE 38 IU/L (13-69); ALBUMIN 3.7 g/dl (3.3-4.9); ALBUMIN/GLOBULIN RATIO 0.69; ALKALINE PHOSPHATASE 220 IU/L (42-121); ANION GAP 17 (8-16); ASPARTATE AMINO TRANSFERASE 59 IU/L (15-46); BILIRUBIN,INDIRECT 0.6 mg/dl (0-1.1); BILIRUBIN,TOTAL 0.6 mg/dl (0.2-1.3); BLOOD UREA NITROGEN 33 mg/dl (7-20); CALCIUM 8.7 mg/dl (8.4-10.2); CARBON DIOXIDE 28 mmol/L (21-31); CHLORIDE 102 mmol/L (97-110); CREATINE KINASE 83 IU/L (23-200); CREATININE 0.86 mg/dl (0.61-1.24); GLUCOSE 194 mg/dl (70-220); MAGNESIUM 1.8 mg/dl (1.7-2.5); POTASSIUM 3.9 mmol/L (3.5-5.1); SODIUM 143 mmol/L (135-144)
[2017-11-01 07:40] LABS: CK INDEX 10.8
[2017-11-01 07:46] LABS: CK-MB 8.95 ng/ml (0.0-2.4)
[2017-11-01] MEDS: INSULIN ASPART [NOVOLOG] 3 ML PEN SC ×11 (08:00→22:13)
[2017-11-01] MEDS: FUROSEMIDE 40 MG TAB PO (08:54)
[2017-11-01] MEDS ORDERED: ASPIRIN 81 MG TAB PO (09:00)
[2017-11-01] MEDS: LEVALBUTEROL (NEB) 1.25 MG/0.5 ML AMP HHN ×4 (10:06→20:50)
[2017-11-01 12:53] LABS: CREATINE KINASE 83 IU/L (23-200)
[2017-11-01] MEDS: DIGOXIN 0.125 MG TAB PO (12:59)
[2017-11-01 13:05] LABS: CK INDEX 11.6
[2017-11-01 13:07] LABS: CK-MB 9.64 ng/ml (0.0-2.4)
[2017-11-01] MEDS: INSULIN GLARGINE [LANtus] 3 ML PEN SC (20:00)
[2017-11-01 21:04] LABS: ANION GAP 14 (8-16); BLOOD UREA NITROGEN 27 mg/dl (7-20); CALCIUM 8.3 mg/dl (8.4-10.2); CARBON DIOXIDE 29 mmol/L (21-31); CHLORIDE 103 mmol/L (97-110); GLUCOSE 187 mg/dl (70-220); MAGNESIUM 1.7 mg/dl (1.7-2.5); POTASSIUM 4.1 mmol/L (3.5-5.1); SODIUM 142 mmol/L (135-144)
[2017-11-01] MEDS: MAGNESIUM SULFATE 1 GM/D5W 100 ML IVPB (22:11)
[2017-11-02] MEDS: LEVALBUTEROL (NEB) 1.25 MG/0.5 ML AMP HHN ×6 (01:02→21:09)
[2017-11-02] MEDS: ACCU-CHEK XX (02:01)
[2017-11-02] MEDS: INSULIN ASPART [NOVOLOG] 3 ML PEN SC ×12 (02:40→21:46)
[2017-11-02 07:10] LABS: ADD MAN DIFF? NO
[2017-11-02 07:16] LABS: BASOPHIL # 0.1 10^3/ul (0.0-0.1); BASOPHILS % 0.7 % (0.0-2.0); EOSINOPHILS # 0.1 10^3/ul (0.0-0.5); EOSINOPHILS % 1.8 % (0.0-7.0); HEMATOCRIT 32.3 % (42.0-52.0); HEMOGLOBIN 10.4 g/dl (14.0-18.0); LYMPHOCYTES # 1.6 10^3/ul (0.8-2.9); LYMPHOCYTES % 21.9 % (15.0-51.0); MEAN CORPUSCULAR HEMOGLOBIN 27.2 pg (29.0-33.0); MEAN CORPUSCULAR HGB CONC 32.2 g/dl (32.0-37.0); MEAN CORPUSCULAR VOLUME 84.6 fl (82.0-101.0); MEAN PLATELET VOLUME 9.7 fl (7.4-10.4); MONOCYTE # 0.5 10^3/ul (0.3-0.9); MONOCYTES % 6.9 % (0.0-11.0); NEUTROPHIL # 4.8 10^3/ul (1.6-7.5); NEUTROPHILS % 68.4 % (39.0-77.0); PLATELET COUNT 279 10^3/UL (140-415); RED BLOOD COUNT 3.82 10^6/ul (4.70-6.10)
[2017-11-02 07:16] LABS: WHITE BLOOD COUNT 7.1 10^3/ul (4.8-10.8)
[2017-11-02 07:43] LABS: CHOLESTEROL 138 mg/dl (100-200)
[2017-11-02 07:43] LABS: CHOL/HDL RATIO 5.5 RATIO; CREATINE KINASE 76 IU/L (23-200); HDL CHOLESTEROL 25 mg/dl (31-75); LDL CHOLESTEROL,CALCULATED 89 mg/dl; TRIGLYCERIDES 120 mg/dl (0-149)
[2017-11-02 07:45] LABS: ALANINE AMINOTRANSFERASE 34 IU/L (13-69); ALBUMIN 3.4 g/dl (3.3-4.9); ALBUMIN/GLOBULIN RATIO 0.69; ALKALINE PHOSPHATASE 193 IU/L (42-121); ANION GAP 13 (8-16); ASPARTATE AMINO TRANSFERASE 47 IU/L (15-46); BILIRUBIN,INDIRECT 0.7 mg/dl (0-1.1); BILIRUBIN,TOTAL 0.7 mg/dl (0.2-1.3); BLOOD UREA NITROGEN 24 mg/dl (7-20); CALCIUM 8.5 mg/dl (8.4-10.2); CARBON DIOXIDE 28 mmol/L (21-31); CHLORIDE 103 mmol/L (97-110); GLUCOSE 193 mg/dl (70-220); SODIUM 140 mmol/L (135-144); TOTAL PROTEIN 8.3 g/dl (6.1-8.1)
[2017-11-02 07:49] LABS: DIGOXIN 0.9 ng/ml (1.0-2.0)
[2017-11-02 07:54] LABS: B-TYPE NATRIURETIC PEPTIDE 9130 PG/ML (0-450)
[2017-11-02 07:55] LABS: CK INDEX 10.9
[2017-11-02 08:01] LABS: CK-MB 8.25 ng/ml (0.0-2.4)
[2017-11-02] MEDS: FUROSEMIDE 40 MG TAB PO (09:35)
[2017-11-02] MEDS: DIGOXIN 0.125 MG TAB PO (12:43)
[2017-11-02] MEDS: INSULIN GLARGINE [LANtus] 3 ML PEN SC (20:14)
[2017-11-03] MEDS: LEVALBUTEROL (NEB) 1.25 MG/0.5 ML AMP HHN ×6 (02:33→20:38)
[2017-11-03] MEDS: ACCU-CHEK XX (02:45)
[2017-11-03] MEDS: HALOPERIDOL 5 MG INJ IM (03:53)
[2017-11-03] MEDS: INSULIN ASPART [NOVOLOG] 3 ML PEN SC ×11 (08:00→21:00)
[2017-11-03] MEDS: FUROSEMIDE 40 MG TAB PO (08:46)
[2017-11-03 08:54] LABS: ADD MAN DIFF? NO
[2017-11-03 09:00] LABS: WHITE BLOOD COUNT 7.4 10^3/ul (4.8-10.8)
[2017-11-03 09:00] LABS: BASOPHILS % 0.4 % (0.0-2.0); EOSINOPHILS # 0.2 10^3/ul (0.0-0.5); EOSINOPHILS % 2.6 % (0.0-7.0); HEMATOCRIT 34.7 % (42.0-52.0); HEMOGLOBIN 11.2 g/dl (14.0-18.0); LYMPHOCYTES # 1.8 10^3/ul (0.8-2.9); LYMPHOCYTES % 24.7 % (15.0-51.0); MEAN CORPUSCULAR HEMOGLOBIN 27.3 pg (29.0-33.0); MEAN CORPUSCULAR HGB CONC 32.3 g/dl (32.0-37.0); MEAN CORPUSCULAR VOLUME 84.4 fl (82.0-101.0); MEAN PLATELET VOLUME 9.5 fl (7.4-10.4); MONOCYTE # 0.6 10^3/ul (0.3-0.9); MONOCYTES % 7.8 % (0.0-11.0); NEUTROPHIL # 4.7 10^3/ul (1.6-7.5); PLATELET COUNT 289 10^3/UL (140-415); RED BLOOD COUNT 4.11 10^6/ul (4.70-6.10); RED CELL DISTRIBUTION WIDTH 18.6 % (11.5-14.5)
[2017-11-03 09:24] LABS: ALANINE AMINOTRANSFERASE 26 IU/L (13-69); ALBUMIN 3.4 g/dl (3.3-4.9); ALBUMIN/GLOBULIN RATIO 0.66; ALKALINE PHOSPHATASE 175 IU/L (42-121); ANION GAP 13 (8-16); ASPARTATE AMINO TRANSFERASE 44 IU/L (15-46); BILIRUBIN,INDIRECT 0.6 mg/dl (0-1.1); BILIRUBIN,TOTAL 0.6 mg/dl (0.2-1.3); BLOOD UREA NITROGEN 25 mg/dl (7-20); CALCIUM 8.4 mg/dl (8.4-10.2); CARBON DIOXIDE 28 mmol/L (21-31); CHLORIDE 103 mmol/L (97-110); CREATININE 0.91 mg/dl (0.61-1.24); GLUCOSE 134 mg/dl (70-220); MAGNESIUM 1.8 mg/dl (1.7-2.5); POTASSIUM 3.7 mmol/L (3.5-5.1); SODIUM 140 mmol/L (135-144); TOTAL PROTEIN 8.5 g/dl (6.1-8.1)
[2017-11-03] MEDS: DIGOXIN 0.125 MG TAB PO (13:19)
[2017-11-03] MEDS: MAGNESIUM SULFATE 2 GM/50 ML 50 ML IVPB (14:50)
[2017-11-03] MEDS: INSULIN GLARGINE [LANtus] 3 ML PEN SC (20:14)
[2017-11-03] MEDS: ACETAMINOPHEN 325 MG TAB PO (20:20)
[2017-11-03] MEDS: DILTIAZEM-D5W 125MG/125ML DRIP 125 ML IV (22:13)
[2017-11-04] MEDS: LEVALBUTEROL (NEB) 1.25 MG/0.5 ML AMP HHN ×6 (00:43→21:12)
[2017-11-04] MEDS: ACCU-CHEK XX (02:00)
[2017-11-04 05:54] LABS: ADD MAN DIFF? NO
[2017-11-04 05:59] LABS: BASOPHILS % 0.5 % (0.0-2.0); EOSINOPHILS # 0.2 10^3/ul (0.0-0.5); EOSINOPHILS % 1.7 % (0.0-7.0); HEMATOCRIT 36.1 % (42.0-52.0); HEMOGLOBIN 11.6 g/dl (14.0-18.0); LYMPHOCYTES # 2.2 10^3/ul (0.8-2.9); MEAN CORPUSCULAR HEMOGLOBIN 27.1 pg (29.0-33.0); MEAN CORPUSCULAR HGB CONC 32.1 g/dl (32.0-37.0); MEAN CORPUSCULAR VOLUME 84.3 fl (82.0-101.0); MEAN PLATELET VOLUME 9.6 fl (7.4-10.4); MONOCYTE # 0.6 10^3/ul (0.3-0.9); MONOCYTES % 7.1 % (0.0-11.0); NEUTROPHIL # 5.5 10^3/ul (1.6-7.5); NEUTROPHILS % 64.4 % (39.0-77.0); PLATELET COUNT 338 10^3/UL (140-415); RED BLOOD COUNT 4.28 10^6/ul (4.70-6.10); RED CELL DISTRIBUTION WIDTH 18.5 % (11.5-14.5)
[2017-11-04 05:59] LABS: WHITE BLOOD COUNT 8.6 10^3/ul (4.8-10.8)
[2017-11-04 06:18] LABS: DIGOXIN 0.8 ng/ml (1.0-2.0)
[2017-11-04 06:32] LABS: ALANINE AMINOTRANSFERASE 29 IU/L (13-69); ALBUMIN 3.5 g/dl (3.3-4.9); ALKALINE PHOSPHATASE 195 IU/L (42-121); ANION GAP 15 (8-16); ASPARTATE AMINO TRANSFERASE 51 IU/L (15-46); BILIRUBIN,INDIRECT 0.6 mg/dl (0-1.1); BILIRUBIN,TOTAL 0.6 mg/dl (0.2-1.3); BLOOD UREA NITROGEN 32 mg/dl (7-20); CALCIUM 8.8 mg/dl (8.4-10.2); CARBON DIOXIDE 32 mmol/L (21-31); CHLORIDE 98 mmol/L (97-110); CREATININE 1.21 mg/dl (0.61-1.24); GLUCOSE 148 mg/dl (70-220); POTASSIUM 3.9 mmol/L (3.5-5.1); SODIUM 141 mmol/L (135-144); TOTAL PROTEIN 9.3 g/dl (6.1-8.1)
[2017-11-04] MEDS: INSULIN ASPART [NOVOLOG] 3 ML PEN SC ×12 (07:58→21:12)
[2017-11-04] MEDS: FUROSEMIDE 40 MG TAB PO (08:59)
[2017-11-04] MEDS: DIGOXIN 0.125 MG TAB PO (13:59)
[2017-11-04] MEDS: INSULIN GLARGINE [LANtus] 3 ML PEN SC (20:55)
[2017-11-05] MEDS: LEVALBUTEROL (NEB) 1.25 MG/0.5 ML AMP HHN ×6 (01:18→21:35)
[2017-11-05] MEDS: ACCU-CHEK XX (02:00)
[2017-11-05] MEDS: INSULIN ASPART [NOVOLOG] 3 ML PEN SC ×11 (08:00→20:39)
[2017-11-05] MEDS: FUROSEMIDE 40 MG TAB PO (09:00)
[2017-11-05 09:01] LABS: ADD MAN DIFF? NO
[2017-11-05 09:10] LABS: WHITE BLOOD COUNT 8.2 10^3/ul (4.8-10.8)
[2017-11-05 09:10] LABS: BASOPHILS % 0.5 % (0.0-2.0); EOSINOPHILS # 0.2 10^3/ul (0.0-0.5); EOSINOPHILS % 2.3 % (0.0-7.0); HEMATOCRIT 37.2 % (42.0-52.0); LYMPHOCYTES # 2.3 10^3/ul (0.8-2.9); MEAN CORPUSCULAR HEMOGLOBIN 27.3 pg (29.0-33.0); MEAN CORPUSCULAR HGB CONC 32.3 g/dl (32.0-37.0); MEAN CORPUSCULAR VOLUME 84.7 fl (82.0-101.0); MEAN PLATELET VOLUME 9.6 fl (7.4-10.4); MONOCYTE # 0.7 10^3/ul (0.3-0.9); NEUTROPHILS % 60.8 % (39.0-77.0); PLATELET COUNT 330 10^3/UL (140-415); RED BLOOD COUNT 4.39 10^6/ul (4.70-6.10); RED CELL DISTRIBUTION WIDTH 18.4 % (11.5-14.5)
[2017-11-05 09:27] LABS: ALANINE AMINOTRANSFERASE 26 IU/L (13-69); ALBUMIN 3.3 g/dl (3.3-4.9); ALBUMIN/GLOBULIN RATIO 0.58; ALKALINE PHOSPHATASE 169 IU/L (42-121); ANION GAP 14 (8-16); ASPARTATE AMINO TRANSFERASE 50 IU/L (15-46); BILIRUBIN,INDIRECT 0.6 mg/dl (0-1.1); BILIRUBIN,TOTAL 0.6 mg/dl (0.2-1.3); BLOOD UREA NITROGEN 26 mg/dl (7-20); CALCIUM 8.6 mg/dl (8.4-10.2); CARBON DIOXIDE 32 mmol/L (21-31); CHLORIDE 100 mmol/L (97-110); CREATININE 0.96 mg/dl (0.61-1.24); GLUCOSE 119 mg/dl (70-220); POTASSIUM 3.7 mmol/L (3.5-5.1); SODIUM 142 mmol/L (135-144); TOTAL PROTEIN 8.9 g/dl (6.1-8.1)
[2017-11-05] MEDS: DIGOXIN 500 MCG INJ IV (11:38)
[2017-11-05] MEDS: DIGOXIN 0.125 MG TAB PO (13:20)
[2017-11-05] MEDS: INSULIN GLARGINE [LANtus] 3 ML PEN SC (20:38)
[2017-11-05] MEDS: morphine 2 MG INJ IV (21:23)
[2017-11-06] MEDS: LEVALBUTEROL (NEB) 1.25 MG/0.5 ML AMP HHN ×6 (01:31→21:13)
[2017-11-06] MEDS: ACCU-CHEK XX (02:00)
[2017-11-06] MEDS: INSULIN ASPART [NOVOLOG] 3 ML PEN SC ×8 (08:00→21:00)
[2017-11-06] MEDS: FUROSEMIDE 40 MG TAB PO (08:59)
[2017-11-06 09:05] LABS: ADD MAN DIFF? NO
[2017-11-06 09:18] LABS: WHITE BLOOD COUNT 7.6 10^3/ul (4.8-10.8)
[2017-11-06 09:18] LABS: BASOPHILS % 0.5 % (0.0-2.0); EOSINOPHILS # 0.2 10^3/ul (0.0-0.5); EOSINOPHILS % 2.5 % (0.0-7.0); HEMATOCRIT 37.2 % (42.0-52.0); HEMOGLOBIN 11.8 g/dl (14.0-18.0); LYMPHOCYTES # 2.2 10^3/ul (0.8-2.9); LYMPHOCYTES % 29.2 % (15.0-51.0); MEAN CORPUSCULAR HEMOGLOBIN 26.8 pg (29.0-33.0); MEAN CORPUSCULAR HGB CONC 31.7 g/dl (32.0-37.0); MEAN CORPUSCULAR VOLUME 84.5 fl (82.0-101.0); MEAN PLATELET VOLUME 9.5 fl (7.4-10.4); MONOCYTE # 0.6 10^3/ul (0.3-0.9); MONOCYTES % 8.1 % (0.0-11.0); NEUTROPHIL # 4.5 10^3/ul (1.6-7.5); NEUTROPHILS % 59.4 % (39.0-77.0); PLATELET COUNT 320 10^3/UL (140-415); RED CELL DISTRIBUTION WIDTH 18.3 % (11.5-14.5)
[2017-11-06 09:40] LABS: DIGOXIN 1.1 ng/ml (1.0-2.0)
[2017-11-06 09:47] LABS: ALANINE AMINOTRANSFERASE 33 IU/L (13-69); ALBUMIN 3.2 g/dl (3.3-4.9); ALBUMIN/GLOBULIN RATIO 0.62; ALKALINE PHOSPHATASE 180 IU/L (42-121); ANION GAP 14 (8-16); ASPARTATE AMINO TRANSFERASE 49 IU/L (15-46); BILIRUBIN,INDIRECT 0.6 mg/dl (0-1.1); BILIRUBIN,TOTAL 0.6 mg/dl (0.2-1.3); BLOOD UREA NITROGEN 28 mg/dl (7-20); CALCIUM 8.7 mg/dl (8.4-10.2); CARBON DIOXIDE 31 mmol/L (21-31); CHLORIDE 99 mmol/L (97-110); CREATININE 0.96 mg/dl (0.61-1.24); GLUCOSE 121 mg/dl (70-220); MAGNESIUM 1.9 mg/dl (1.7-2.5); POTASSIUM 3.8 mmol/L (3.5-5.1); SODIUM 140 mmol/L (135-144); TOTAL PROTEIN 8.3 g/dl (6.1-8.1)
[2017-11-06] MEDS: DIGOXIN 0.125 MG TAB PO (12:22)
[2017-11-06] MEDS: DIGOXIN 500 MCG INJ IV (20:56)
[2017-11-06] MEDS: INSULIN GLARGINE [LANtus] 3 ML PEN SC (20:58)
[2017-11-06] MEDS: morphine 2 MG INJ IV (21:16)
[2017-11-07] MEDS: LEVALBUTEROL (NEB) 1.25 MG/0.5 ML AMP HHN ×6 (01:10→20:50)
[2017-11-07] MEDS: ACCU-CHEK XX (02:00)
[2017-11-07] MEDS: morphine 2 MG INJ IV ×2 (05:28→20:47)
[2017-11-07] MEDS: INSULIN ASPART [NOVOLOG] 3 ML PEN SC ×7 (08:00→20:31)
[2017-11-07] MEDS: FUROSEMIDE 40 MG TAB PO (09:10)
[2017-11-07] MEDS: DIGOXIN 0.125 MG TAB PO (12:58)
[2017-11-07] MEDS: INSULIN GLARGINE [LANtus] 3 ML PEN SC (20:31)
[2017-11-07] MEDS: ZOLPIDEM 5 MG TAB PO (21:59)
[2017-11-08] MEDS: LEVALBUTEROL (NEB) 1.25 MG/0.5 ML AMP HHN ×6 (01:36→21:04)
[2017-11-08] MEDS: ACCU-CHEK XX (02:00)
[2017-11-08 06:58] LABS: ADD MAN DIFF? NO
[2017-11-08 07:03] LABS: BASOPHILS % 0.6 % (0.0-2.0); EOSINOPHILS # 0.2 10^3/ul (0.0-0.5); EOSINOPHILS % 3.2 % (0.0-7.0); HEMATOCRIT 37.6 % (42.0-52.0); HEMOGLOBIN 12.2 g/dl (14.0-18.0); LYMPHOCYTES # 1.9 10^3/ul (0.8-2.9); LYMPHOCYTES % 30.3 % (15.0-51.0); MEAN CORPUSCULAR HEMOGLOBIN 27.4 pg (29.0-33.0); MEAN CORPUSCULAR HGB CONC 32.4 g/dl (32.0-37.0); MEAN CORPUSCULAR VOLUME 84.5 fl (82.0-101.0); MEAN PLATELET VOLUME 9.9 fl (7.4-10.4); MONOCYTE # 0.6 10^3/ul (0.3-0.9); MONOCYTES % 10.2 % (0.0-11.0); NEUTROPHIL # 3.5 10^3/ul (1.6-7.5); NEUTROPHILS % 55.4 % (39.0-77.0); PLATELET COUNT 314 10^3/UL (140-415); RED BLOOD COUNT 4.45 10^6/ul (4.70-6.10); RED CELL DISTRIBUTION WIDTH 17.4 % (11.5-14.5)
[2017-11-08 07:03] LABS: WHITE BLOOD COUNT 6.3 10^3/ul (4.8-10.8)
[2017-11-08 07:32] LABS: ANION GAP 12 (8-16); BLOOD UREA NITROGEN 40 mg/dl (7-20); CALCIUM 8.8 mg/dl (8.4-10.2); CARBON DIOXIDE 31 mmol/L (21-31); CHLORIDE 101 mmol/L (97-110); CREATININE 0.83 mg/dl (0.61-1.24); GLUCOSE 169 mg/dl (70-220); POTASSIUM 3.9 mmol/L (3.5-5.1); SODIUM 140 mmol/L (135-144)
[2017-11-08] MEDS: INSULIN ASPART [NOVOLOG] 3 ML PEN SC ×7 (08:00→21:00)
[2017-11-08] MEDS: FUROSEMIDE 40 MG TAB PO (08:32)
[2017-11-08] MEDS: DIGOXIN 0.125 MG TAB PO (13:24)
[2017-11-08] MEDS: morphine 2 MG INJ IV (19:53)
[2017-11-08] MEDS: INSULIN GLARGINE [LANtus] 3 ML PEN SC (19:57)
[2017-11-08] MEDS: DILTIAZEM-D5W 125MG/125ML DRIP 125 ML IV (23:08)
[2017-11-08] MEDS: ZOLPIDEM 5 MG TAB PO (23:16)
[2017-11-09] MEDS: LEVALBUTEROL (NEB) 1.25 MG/0.5 ML AMP HHN ×5 (01:10→21:00)
[2017-11-09] MEDS: morphine 2 MG INJ IV (01:35)
[2017-11-09] MEDS: ACCU-CHEK XX (02:00)
[2017-11-09 07:36] LABS: ADD MAN DIFF? NO
[2017-11-09 07:41] LABS: WHITE BLOOD COUNT 7.7 10^3/ul (4.8-10.8)
[2017-11-09 07:41] LABS: BASOPHIL # 0.1 10^3/ul (0.0-0.1); BASOPHILS % 0.7 % (0.0-2.0); EOSINOPHILS # 0.1 10^3/ul (0.0-0.5); EOSINOPHILS % 1.7 % (0.0-7.0); HEMATOCRIT 39.7 % (42.0-52.0); HEMOGLOBIN 12.4 g/dl (14.0-18.0); LYMPHOCYTES # 1.9 10^3/ul (0.8-2.9); LYMPHOCYTES % 24.7 % (15.0-51.0); MEAN CORPUSCULAR HEMOGLOBIN 26.7 pg (29.0-33.0); MEAN CORPUSCULAR HGB CONC 31.2 g/dl (32.0-37.0); MEAN CORPUSCULAR VOLUME 85.4 fl (82.0-101.0); MEAN PLATELET VOLUME 9.8 fl (7.4-10.4); MONOCYTE # 0.8 10^3/ul (0.3-0.9); MONOCYTES % 9.9 % (0.0-11.0); NEUTROPHIL # 4.8 10^3/ul (1.6-7.5); NEUTROPHILS % 62.7 % (39.0-77.0); PLATELET COUNT 311 10^3/UL (140-415); RED BLOOD COUNT 4.65 10^6/ul (4.70-6.10); RED CELL DISTRIBUTION WIDTH 17.6 % (11.5-14.5)
[2017-11-09 07:59] LABS: ANION GAP 15 (8-16); BLOOD UREA NITROGEN 49 mg/dl (7-20); CALCIUM 9.2 mg/dl (8.4-10.2); CARBON DIOXIDE 33 mmol/L (21-31); CHLORIDE 98 mmol/L (97-110); CREATININE 0.93 mg/dl (0.61-1.24); GLUCOSE 170 mg/dl (70-220); POTASSIUM 3.8 mmol/L (3.5-5.1); SODIUM 142 mmol/L (135-144)
[2017-11-09] MEDS: INSULIN ASPART [NOVOLOG] 3 ML PEN SC ×7 (08:58→21:30)
[2017-11-09] MEDS: FUROSEMIDE 40 MG TAB PO (09:00)
[2017-11-09] MEDS: DIGOXIN 0.125 MG TAB PO (13:20)
[2017-11-09] MEDS ORDERED: ZOLPIDEM 5 MG TAB PO (21:00)
[2017-11-09] MEDS: INSULIN GLARGINE [LANtus] 3 ML PEN SC (21:30)
[2017-11-10] MEDS: LEVALBUTEROL (NEB) 1.25 MG/0.5 ML AMP HHN ×6 (00:19→20:38)
[2017-11-10] MEDS: ACCU-CHEK XX (02:15)
[2017-11-10] MEDS: INSULIN ASPART [NOVOLOG] 3 ML PEN SC ×7 (08:26→20:17)
[2017-11-10 08:29] LABS: ADD MAN DIFF? NO
[2017-11-10 08:31] LABS: WHITE BLOOD COUNT 9.5 10^3/ul (4.8-10.8)
[2017-11-10 08:31] LABS: BASOPHIL # 0.1 10^3/ul (0.0-0.1); BASOPHILS % 0.6 % (0.0-2.0); EOSINOPHILS # 0.1 10^3/ul (0.0-0.5); EOSINOPHILS % 1.5 % (0.0-7.0); HEMATOCRIT 38.1 % (42.0-52.0); HEMOGLOBIN 12.2 g/dl (14.0-18.0); LYMPHOCYTES # 2.2 10^3/ul (0.8-2.9); LYMPHOCYTES % 23.3 % (15.0-51.0); MEAN CORPUSCULAR HEMOGLOBIN 27.1 pg (29.0-33.0); MEAN CORPUSCULAR VOLUME 84.5 fl (82.0-101.0); MEAN PLATELET VOLUME 9.8 fl (7.4-10.4); MONOCYTE # 0.9 10^3/ul (0.3-0.9); MONOCYTES % 9.1 % (0.0-11.0); NEUTROPHIL # 6.2 10^3/ul (1.6-7.5); NEUTROPHILS % 65.2 % (39.0-77.0); PLATELET COUNT 306 10^3/UL (140-415); RED BLOOD COUNT 4.51 10^6/ul (4.70-6.10); RED CELL DISTRIBUTION WIDTH 17.2 % (11.5-14.5)
[2017-11-10 09:07] LABS: ANION GAP 17 (8-16); BLOOD UREA NITROGEN 44 mg/dl (7-20); CARBON DIOXIDE 31 mmol/L (21-31); CHLORIDE 96 mmol/L (97-110); CREATININE 0.89 mg/dl (0.61-1.24); GLUCOSE 184 mg/dl (70-220); POTASSIUM 3.8 mmol/L (3.5-5.1); SODIUM 140 mmol/L (135-144)
[2017-11-10] MEDS: FUROSEMIDE 40 MG TAB PO (09:19)
[2017-11-10] MEDS: DIGOXIN 0.125 MG TAB PO (14:40)
[2017-11-10] MEDS: morphine 2 MG INJ IV (20:14)
[2017-11-10] MEDS: INSULIN GLARGINE [LANtus] 3 ML PEN SC (20:27)
[2017-11-10] MEDS ORDERED: ZOLPIDEM 5 MG TAB PO (21:00)
[2017-11-11] MEDS: LORAZEPAM 2 MG INJ IV (00:16)
[2017-11-11] MEDS: LEVALBUTEROL (NEB) 1.25 MG/0.5 ML AMP HHN ×6 (00:29→21:39)
[2017-11-11] MEDS: ACCU-CHEK XX (02:00)
[2017-11-11 07:07] LABS: ADD MAN DIFF? NO
[2017-11-11 07:11] LABS: BASOPHIL # 0.1 10^3/ul (0.0-0.1); BASOPHILS % 0.6 % (0.0-2.0); EOSINOPHILS # 0.2 10^3/ul (0.0-0.5); EOSINOPHILS % 1.7 % (0.0-7.0); HEMOGLOBIN 13.9 g/dl (14.0-18.0); MEAN CORPUSCULAR HEMOGLOBIN 26.8 pg (29.0-33.0); MEAN CORPUSCULAR HGB CONC 30.9 g/dl (32.0-37.0); MEAN CORPUSCULAR VOLUME 86.7 fl (82.0-101.0); MEAN PLATELET VOLUME 10.4 fl (7.4-10.4); MONOCYTES % 8.7 % (0.0-11.0); NEUTROPHIL # 7.6 10^3/ul (1.6-7.5); NEUTROPHILS % 63.6 % (39.0-77.0); PLATELET COUNT 315 10^3/UL (140-415); RED BLOOD COUNT 5.19 10^6/ul (4.70-6.10); RED CELL DISTRIBUTION WIDTH 17.2 % (11.5-14.5)
[2017-11-11 07:11] LABS: WHITE BLOOD COUNT 11.9 10^3/ul (4.8-10.8)
[2017-11-11] MEDS: INSULIN ASPART [NOVOLOG] 3 ML PEN SC ×7 (07:35→22:48)
[2017-11-11 07:44] LABS: BLOOD UREA NITROGEN 52 mg/dl (7-20); CALCIUM 9.6 mg/dl (8.4-10.2); CARBON DIOXIDE 28 mmol/L (21-31); CHLORIDE 102 mmol/L (97-110); CREATININE 1.07 mg/dl (0.61-1.24); GLUCOSE 195 mg/dl (70-220); SODIUM 144 mmol/L (135-144)
[2017-11-11 07:51] LABS: ANION GAP 18 (8-16); POTASSIUM 4.1 mmol/L (3.5-5.1)
[2017-11-11] MEDS: FUROSEMIDE 40 MG TAB PO (09:00)
[2017-11-11] MEDS: DIGOXIN 0.125 MG TAB PO ×2 (13:00→14:13)
[2017-11-11] MEDS: INSULIN GLARGINE [LANtus] 3 ML PEN SC (22:47)
[2017-11-12] MEDS: LEVALBUTEROL (NEB) 1.25 MG/0.5 ML AMP HHN ×4 (00:49→12:06)
[2017-11-12] MEDS: ACCU-CHEK XX (02:00)
[2017-11-12 06:06] LABS: ADD MAN DIFF? NO
[2017-11-12 06:12] LABS: WHITE BLOOD COUNT 8.4 10^3/ul (4.8-10.8)
[2017-11-12 06:12] LABS: BASOPHIL # 0.1 10^3/ul (0.0-0.1); BASOPHILS % 0.6 % (0.0-2.0); EOSINOPHILS # 0.2 10^3/ul (0.0-0.5); EOSINOPHILS % 2.1 % (0.0-7.0); HEMATOCRIT 39.9 % (42.0-52.0); HEMOGLOBIN 12.6 g/dl (14.0-18.0); LYMPHOCYTES # 1.9 10^3/ul (0.8-2.9); MEAN CORPUSCULAR HEMOGLOBIN 26.9 pg (29.0-33.0); MEAN CORPUSCULAR HGB CONC 31.6 g/dl (32.0-37.0); MEAN CORPUSCULAR VOLUME 85.1 fl (82.0-101.0); MONOCYTE # 0.8 10^3/ul (0.3-0.9); MONOCYTES % 9.4 % (0.0-11.0); NEUTROPHIL # 5.5 10^3/ul (1.6-7.5); NEUTROPHILS % 64.8 % (39.0-77.0); PLATELET COUNT 302 10^3/UL (140-415); RED BLOOD COUNT 4.69 10^6/ul (4.70-6.10); RED CELL DISTRIBUTION WIDTH 17.3 % (11.5-14.5)
[2017-11-12 06:35] LABS: ANION GAP 16 (8-16); BLOOD UREA NITROGEN 53 mg/dl (7-20); CALCIUM 9.3 mg/dl (8.4-10.2); CARBON DIOXIDE 32 mmol/L (21-31); CHLORIDE 102 mmol/L (97-110); CREATININE 0.82 mg/dl (0.61-1.24); GLUCOSE 170 mg/dl (70-220); POTASSIUM 3.5 mmol/L (3.5-5.1); SODIUM 146 mmol/L (135-144)
[2017-11-12] MEDS: INSULIN ASPART [NOVOLOG] 3 ML PEN SC ×4 (08:18→11:46)
[2017-11-12] MEDS: FUROSEMIDE 40 MG TAB PO (09:47)
[2017-11-12] MEDS: DIGOXIN 0.125 MG TAB PO (13:13)
== END 2017-11-12 15:30 | disposition home health service (06) | DRG 308 ==
LOC: MS4 11-01 03:19 → E/R 22:24 → PP2 11-10 21:05
DX: I48.91 Unspecified atrial fibrillation (principal); G93.49 Other encephalopathy; R18.8 Other ascites; I50.22 Chronic systolic (congestive) heart failure; R04.0 Epistaxis; I42.9 Cardiomyopathy, unspecified; K74.60 Unspecified cirrhosis of liver; Z89.611 Acquired absence of right leg above knee; I27.20 Pulmonary hypertension, unspecified; Z87.891 Personal history of nicotine dependence; I25.2 Old myocardial infarction; E11.51 Type 2 diabetes mellitus with diabetic peripheral angiopathy without gangrene; E78.5 Hyperlipidemia, unspecified; Z78.1 Physical restraint status; R13.10 Dysphagia, unspecified; I69.298 Other sequelae of other nontraumatic intracranial hemorrhage; Z66 Do not resuscitate; Z51.5 Encounter for palliative care
CPT/HCPCS: 36415; 71045; 80048; 80053; 80061; 80162; 81003; 82550; 82553; 82962; 83735; 83880; 84443; 84484; 85025; 87070; 87081; 93005; 94640; 94664; 96372; 96374; 96375; 99291-25